=== PATIENT | female | born 1950 | race Caucasian/White ===

== ENCOUNTER 2018-04-13 16:02 | Emergency (ER) | payer MEDICARE ==
[~2018-04-13] VITALS: Ht 167.6 cm; Wt 115.9 kg
[~2018-04-13 16:02] MED LIST: ADVAIR 500/501 DISK INH; AUGMENTIN 875-11 TAB PO; BIOTIN5 MG PO; BUMEX2 MG PO; CATAPRES0.1 MG PO; CLARINEX5 MG PO; COMBIVENT RESPIM4 GM INH; DICLOFENAC SODI50 MG PO; DILANTIN100 MG PO; FLUTICASONE PRO16 GM NASAL; IPRAT-ALBUT 0.5-3 ML UPD; KLOR-CON M2020 MEQ PO; LASIX40 MG PO; MEDROL DOSE PACK4 MG PO; MIRAPEX0.25 MG PO; MOBIC7.5 MG PO; MUCINEX600 MG PO; NEURONTIN600 MG PO; NORCO 10/325 TA1 TA1 PO; NYSTATIN ORAL SU5 ML PO; OMNICEF300 MG PO; PHENERGAN25 M1 PO; PHENYTOIN100 MG/4 M PO; PREDNISONE20 MG PO; PROTONIX40 MG PO; RESTORIL15 MG PO; RESTORIL7.5 MG PO; SINGULAIR10 MG PO; TESSALON PERLE100 MG PO; TRILEPTAL300 MG PO; VITAMIN B-1000 MCG/M IM; ZANAFLEX4 MG PO; ZITHROMAX250 MG PO; ZITHROMAX500 MG PO; ZOFRAN4 MG PO
[2018-04-13 16:10] VITALS: Ht 167.6 cm; Wt 115.9 kg
[2018-04-13] MEDS ORDERED: ZANAFLEX4 MG PO (16:17)
[2018-04-13] MEDS ORDERED: TRAZODONE HCL100 MG PO (16:17)
[2018-04-13] MEDS ORDERED: CARTIA XT120 MG (16:18)
[2018-04-13] MEDS ORDERED: AVAPRO300 MG PO (16:18)
[2018-04-13 16:55] LABS: BASOPHILS 0.4 % (0-2); EOSINOPHILS 2.9 % (0-7); HEMATOCRIT 35.1 % (36.0-48.0); HEMOGLOBIN 11.5 g/dL (12-16); IMMATURE GRANULOCYTES 0.1 % (0-5); LYMPHOCYTES 18.6 % (15-50); MCH 29.8 pg (26.0-34.0); MCHC 32.8 g/dL (31.0-37.0); MCV 90.9 fL (80.0-100.0); MEAN PLATELET VOLUME 9.6 fL (7.4-10.4); MONOCYTES 7.5 % (2-11); NEUTROPHILS 70.5 % (40-80); PLATELET COUNT 158 10x3/uL (130-400); RBC 3.86 10x6/uL (4.00-5.40); RDW 13.1 % (11.5-14.5); WBC 6.9 10x3/uL (4.8-10.8)
[2018-04-13 18:12] LABS: ALBUMIN 3.2 g/dL (3.4-5.0); ANION GAP 13.8 mmol/L (8-16); BILIRUBIN - TOTAL 0.19 mg/dL (0.2-1.3); CALCIUM 8.5 mg/dL (8.5-10.1); CARBON DIOXIDE 26.8 mmol/L (21.0-32.0); CREATININE - SERUM 1.3 mg/dL (0.6-1.3); POTASSIUM - SERUM 4.6 mmol/L (3.5-5.1); PROTEIN - SERUM 6.1 g/dL (6.4-8.2)
[2018-04-13 19:23] VITALS: BP 163/84
== END 2018-04-13 19:19 | disposition home or self-care (01) ==
LOC: D.ER 16:02
PROVIDERS: Emergency Medicine
DX: R25.2 Cramp and spasm (principal); J44.9 Chronic obstructive pulmonary disease, unspecified; Z86.79 Personal history of other diseases of the circulatory system; I10 Essential (primary) hypertension; N28.9 Disorder of kidney and ureter, unspecified; G40.909 Epilepsy, unspecified, not intractable, without status epilepticus

== ENCOUNTER 2018-08-05 11:46 | Inpatient (IN) | payer MEDICARE, OTHER ==
[~2018-08-05] VITALS: Ht 167.6 cm; Wt 110.7 kg
[~2018-08-05 11:46] MED LIST changes: +AVAPRO300 MG PO; +CARTIA XT120 MG; +TRAZODONE HCL100 MG PO
--- NOTE | 2018-08-05 12:59 | NUR ---
PT ARRIVED A DIRECT ADMIT FROM OFFICE. PT IS A&O SITTING UP IN BED WITH DAUGHTER AT BEDSIDE. RR NONLABORED WITH NC @2L IN PLACE. 22 GUAGE PIV INSERTED TO L.FA X2 STICKS. WILL REVIEW NEW ORDERS AND BEGIN PLAN OF CARE.
[2018-08-05 13:11] LABS: BASOPHILS 0.3 % (0-2); EOSINOPHILS 1.2 % (0-7); HEMATOCRIT 34.4 % (36.0-48.0); HEMOGLOBIN 11.1 g/dL (12-16); IMMATURE GRANULOCYTES 0.8 % (0-5); LYMPHOCYTES 23.4 % (15-50); MCH 29.9 pg (26.0-34.0); MCHC 32.3 g/dL (31.0-37.0); MCV 92.7 fL (80.0-100.0); MEAN PLATELET VOLUME 9.3 fL (7.4-10.4); MONOCYTES 8.2 % (2-11); NEUTROPHILS 66.1 % (40-80); RBC 3.71 10x6/uL (4.00-5.40); RDW 12.4 % (11.5-14.5); WBC 7.7 10x3/uL (4.8-10.8)
[2018-08-05 13:17] LABS: PLATELET COUNT 205 10x3/uL (130-400)
[2018-08-05 13:24] LABS: ALBUMIN 3.2 g/dL (3.4-5.0); ANION GAP 13.5 mmol/L (8-16); BILIRUBIN - TOTAL 0.06 mg/dL (0.2-1.3); CALCIUM 8.5 mg/dL (8.5-10.1); CARBON DIOXIDE 27.3 mmol/L (21.0-32.0); CREATININE - SERUM 0.9 mg/dL (0.6-1.3); POTASSIUM - SERUM 3.8 mmol/L (3.5-5.1); PROTEIN - SERUM 6.7 g/dL (6.4-8.2)
[2018-08-05 14:01] VITALS: BP 187/65
[2018-08-05 15:53] VITALS: BP 187/65; BMI 41.3
[2018-08-05 16:32] LABS: APPEARANCE CLEAR (CLEAR); BILIRUBIN NEGATIVE (NEGATIVE); COLOR YELLOW (YELLOW); GLUCOSE NEGATIVE (NEGATIVE); KETONE NEGATIVE (NEGATIVE); NITRITE NEGATIVE (NEGATIVE); PROTEIN NEGATIVE (NEGATIVE); UROBILINOGEN NORMAL (NORMAL)
--- NOTE | 2018-08-05 17:12 | NUR ---
EMPTIED TOPHAT OF 800CC CLEAR YELLOW URINE. PT VOICED RELIEF FROM PRN PAIN PILL AND VOICED THANKS. PT SITTING UP IN BED RESTING QUIETLY. NO CURRENT NEEDS. WILL CTM.
[2018-08-05 20:00] VITALS: BP 154/66
--- NOTE | 2018-08-05 21:46 | NUR ---
ADMINISTERED ORDERED ANALGESIC FOR PT COMPLAINTS OF BACK PAIN, PT STATES PAIN OF A 7 ON A SCALE OF 0-10.
[2018-08-06] VITALS: BP 201/70
--- NOTE | 2018-08-06 00:19 | NUR ---
PT RESTING WITH EYES CLOSED. RESP EVEN AND REGULAR. SR UP X2, CALL LIGHT WITHIN REACH.
--- NOTE | 2018-08-06 02:51 | NUR ---
PT SITTING UP IN BED WITH EYES OPEN, RR EVEN AND UNLABORED. BED IN LOW POSITION. OXYGEN AT 2.5 LITERS BY NASAL CANNULA. NO S/S OF DISTRESS. CALL LIGHT IN REACH. WILL CTM.
[2018-08-06 04:00] VITALS: BP 187/77
--- NOTE | 2018-08-06 05:58 | NUR ---
PT SITTING UP IN BED WITH EYES OPEN, NO S/S OF DISTRESS. BED IN LOW POSITION. CALL LIGHT IN REACH. DENIES NEEDS. WILL CTM.
--- NOTE | 2018-08-06 07:30 | NUR ---
PATIENT IS ALERT AND ORIENTED. SITTING UP IN BED AT THIS TIME WATCHING TV. SHE DENIES ANY NEEDS AND REPORTS THAT SHE DID NOT SLEEP VERY WELL.
[2018-08-06 08:16] VITALS: Ht 167.6 cm; Wt 110.7 kg
[2018-08-06 08:33] VITALS: BP 146/76
--- NOTE | 2018-08-06 08:59 | NUR ---
IV IN LEFT FOREARM IS INFILTRATED. REMOVED WITH CATHETER INTACT. ATTEMPTED 2 STICKS WAS UNSUCCESSFUL. CALLING ER TO SEE IF THEY HAVE A VASCULAR ACCESS NURSE TODAY. PATIENT IS A RIGHT ARM RESERVE.
[2018-08-06 10:08] LABS: BASOPHILS 0.2 % (0-2); EOSINOPHILS 0.1 % (0-7); HEMATOCRIT 36.8 % (36.0-48.0); HEMOGLOBIN 11.9 g/dL (12-16); IMMATURE GRANULOCYTES 0.7 % (0-5); LYMPHOCYTES 13.7 % (15-50); MCH 29.8 pg (26.0-34.0); MCHC 32.3 g/dL (31.0-37.0); MEAN PLATELET VOLUME 9.5 fL (7.4-10.4); MONOCYTES 3.6 % (2-11); NEUTROPHILS 81.7 % (40-80); PLATELET COUNT 227 10x3/uL (130-400); RDW 12.4 % (11.5-14.5); WBC 9.5 10x3/uL (4.8-10.8)
[2018-08-06 10:13] LABS: ANION GAP 11.8 mmol/L (8-16); CALCIUM 8.8 mg/dL (8.5-10.1); CARBON DIOXIDE 27.4 mmol/L (21.0-32.0); CREATININE - SERUM 0.9 mg/dL (0.6-1.3); POTASSIUM - SERUM 4.2 mmol/L (3.5-5.1)
--- NOTE | 2018-08-06 10:24 | NUR ---
CALLED PHARMACY. MEDICATION IS NOT AVAILABLE AT THIS TIME.
--- NOTE | 2018-08-06 11:27 | NUR ---
NEW IV STARTED BY PORTIA MONDRAGON. LEFT HAND 22 GAUGE. BEING VERY TENDER WITH IT. ADMINISTERING ANTIBIOTICS SLOWER THEN ORDERED TO BE MORE GENTAL ON THE VEIN.
[2018-08-06 11:57] VITALS: BP 201/78
--- NOTE | 2018-08-06 13:18 | NUR ---
RN ROUNDING DONE WITH PATIENT RESTING WITH EYES CLOSED. RESP ARE EVEN AND NON LABORED. ON 3L PER NC. PATIENT IS OBESE, WAS SLEEPING WITH HOB AT 90 DEGREES. USING BED CONTROLS I PLACED HER IN A 30 DEGREE SETTING. AROUSES EASILY, STATES "MUCH BETTER". ON HEART MONITOR SHOWING SR, HR 72.
[2018-08-06 16:23] VITALS: BP 149/67
--- NOTE | 2018-08-06 20:03 | NUR ---
INITIAL REPORT AND ROUNDS COMPLETED. SEE ASSESSMENT.
[2018-08-06 21:28] VITALS: BP 207/89
--- NOTE | 2018-08-07 01:01 | NUR ---
PT ACCIDENTALLY PULLED ON IV UNTIL IT IS NO LONGER PATENT. NO FURTHER IV MEDS DUE THIS SHIFT. WILL ATTEMPT RESITE IN AM. PT NOW READYING SELF FOR BED.
[2018-08-07 01:19] VITALS: BP 213/62
[2018-08-07 04:57] VITALS: BP 197/95
--- NOTE | 2018-08-07 04:59 | NUR ---
PT RESTING WITH NO DISTRESS. MONITOR AND CPOC.
[2018-08-07 05:58] LABS: BASOPHILS 0 % (0-2); EOSINOPHILS 0 % (0-7); HEMATOCRIT 40.4 % (36.0-48.0); IMMATURE GRANULOCYTES 0.7 % (0-5); LYMPHOCYTES 9.6 % (15-50); MCHC 32.2 g/dL (31.0-37.0); MCV 93.3 fL (80.0-100.0); MEAN PLATELET VOLUME 9.8 fL (7.4-10.4); MONOCYTES 2.1 % (2-11); NEUTROPHILS 87.6 % (40-80); PLATELET COUNT 243 10x3/uL (130-400); RBC 4.33 10x6/uL (4.00-5.40); RDW 12.4 % (11.5-14.5); WBC 10.2 10x3/uL (4.8-10.8)
[2018-08-07 06:43] LABS: ANION GAP 16.5 mmol/L (8-16); CALCIUM 9.6 mg/dL (8.5-10.1); CARBON DIOXIDE 28.7 mmol/L (21.0-32.0); CREATININE - SERUM 0.9 mg/dL (0.6-1.3)
[2018-08-07 06:52] LABS: POTASSIUM - SERUM 5.2 mmol/L (3.5-5.1)
--- NOTE | 2018-08-07 07:20 | NUR ---
RECEIVED REPORT. LYING IN BED HOB ELEVATED EYES CLOSED RESTING. RR EVEN AND UNLABORED. CALL LIGHT WITHIN REACH, FALL PRECAUTIONS IN PLACE
[2018-08-07 08:32] VITALS: BP 198/80
[2018-08-07 12:21] VITALS: BP 192/77
--- NOTE | 2018-08-07 15:28 | NUR ---
ALERT AND ORIENTED. SITTING UP BED PUTTING MAKEUP ON. WAITING FOR DISCHARGE PAPERWORK. NO SIGNS OF DISTRESS. BLANCO BROOKS RESUMES PLAN OF CARE AND SAFETY PRECAUTIONS.
[2018-08-07] MEDS ORDERED: VIBRAMYCIN 100100 MG PO (15:39)
[2018-08-07] MEDS ORDERED: COREG6.25 MG PO (15:58)
[2018-08-07] MEDS ORDERED: CARDURA1 MG PO (16:12)
[2018-08-07] MEDS ORDERED: PREDNISONE10 MG PO (16:14)
[2018-08-07 16:31] VITALS: BP 159/63
--- NOTE | 2018-08-07 16:40 | NUR ---
SITTING UP IN BED EYES OPEN ALERT. DENIES ANY NEEDS OR PAIN. AWAITING D/C PAPERWORK.
--- NOTE | 2018-08-07 18:31 | NUR ---
REVIEWED D/C INSTRUCTIONS AND MEDICATIONS WITH PATIENT. NO CONCERNS VOICED. PATIENT COPY WAS GIVEN AND CHART COPY SIGNED BY PATIENT. NO IV ACCESS NOTED. PATIENT IS AWAITING HER RIDE FOR TO GO HOME.
--- NOTE | 2018-08-07 19:03 | NUR ---
PT DISCHARGED TO HOME VIA PRIVATE CAR AT THIS TIME. ALL BELONGINGS WITH PATIENT.
--- NOTE | 2018-08-08 11:31 | MORECARE ---
CASE MANAGEMENT DISCHARGE SUMMARY PATIENT: JULISSA GALVEZ UNIT: [id number] ADM DATE: 08/05/18 AGE: 67 : 48 SEX: F ROOM/BED: D.2126 AUTHOR: DESTINEE SMITH PHYSICIAN: REFERRING PHYSICIAN: CARMEN MARSHALL MD DATE OF SERVICE: 08/08/18 Discharge Plan Patient Name: JULISSA GALVEZ [facility] [facility] 1950 Planned Disposition: Home Anticipated Discharge Date: 08/07/18 Discharge Date: 08/07/2018 Expected LOS: 2 Initial Reviewer: [email or web address] Initial Review Date: 08/08/2018 Generated: 08/08/18 12:31 pm Patient Name: JULISSA GALVEZ Page 55108 at 1131 All edits/amendments must be made on the electronic document DICTATION DATE: 08/08/18 113 CARAMEL CUTTER HELPER: EMERSON 08/08/18 1130 RPT#: [id number] DC DATE:08/07/18 STATUS: DIS IN [facility] [address] [place] [address] END OF REPORT
--- NOTE | 2018-08-10 16:42 | CN ---
PATIENT NAME:JULISSA GALVEZ MEDICAL RECORD: [id number] : 46 LOCATION:D. D.2126 ADMIT DATE: 08/05/18 ACCOUNT: [id number] CONSULTING PHYSICIAN: INDY VIVAR MD REFERRING PHYSICIAN: CARMEN MARSHALL MD DATE OF CONSULTATION: 08/05/2018 CONSULT REQUESTING PHYSICIAN: Radha Dubois MD REASON FOR CONSULTATION: COPD exacerbation. HISTORY OF PRESENT ILLNESS: Ms. Galvez is a 67-year-old female who is sick for the last few days. She was seen in the PCP office yesterday, given some antibiotic, but the patient was not getting any better. She came into the ER for worsening shortness of breath. She has generalized body aches and pain. She also have intermittent fever. There is no yellow-green color sputum production. The patient does have sleep apnea, but she is not using a CPAP machine, which give her migraine headache. REVIEW OF SYSTEMS: As in history of present illness. PAST MEDICAL HISTORY: 1. COPD. 2. Seizure disorder. 3. Nocturnal hypoxia. 4. Peptic ulcer disease. 5. Arthritis. PAST SURGICAL HISTORY: 1. Hysterectomy. 2. Right mastectomy. ALLERGIES: SHE IS ALLERGIC TO PROCHLORPERAZINE, LEVOFLOXACIN, MEPERIDINE, SULFA, AND BACTRIM. MEDICATIONS: On Clerts! is reviewed. PERSONAL AND SOCIAL HISTORY: The patient is an ex-smoker. She is a nondrinker. FAMILY HISTORY: Noncontributory. PHYSICAL EXAMINATION: GENERAL: The patient is lying comfortably, but she is not in acute distress. VITAL SIGNS: The blood pressure is 87/65, pulse is 80, respiration 20, temperature 98.1, and SPO2 95% on 2 liters nasal cannula. HEENT: Conjunctivae are pink. Sclerae are not icteric. NECK: Supple, no JVD. CHEST: There are wheezing on forceful expiration. HEART: Rhythm regular, normal sound, no murmur. ABDOMEN: Soft, bowel sounds present. No hepatosplenomegaly. RECTAL: Deferred. EXTREMITIES: No cyanosis, no clubbing, no pedal edema. CENTRAL NERVOUS SYSTEM: The patient is awake and alert. There are no obvious cranial nerve abnormality. The gait was not tested. CONSULT REPORT [id number] JULISSA GALVEZ CHEST RADIOGRAPH: There are old calcified granuloma in the subcarinal region. There is also pulmonary nodule in the right lower lobe. There is no acute infiltrate. OTHER LABORATORY DATA: CBC: WBC 7.7, hemoglobin 11.1, hematocrit 34.4. ABG: The pH is 7.35, pCO2 is 45.8, the pO2 is 74, bicarbonate is 25.8. IMPRESSION: 1. Acute exacerbation of chronic obstructive pulmonary disease. 2. Pqgda-mp-yasbpyj hypoxic respiratory failure. 3. Tracheobronchitis. 4. Old granulomatous disease with calcified lymph node in the subcarinal region. 5. Dyspnea. 6. Obstructive sleep apnea, but the patient is not tolerating the CPAP machine. 7. Seizure disorder. RECOMMENDATION: 1. Start on doxycycline to cover for the tracheobronchitis. 2. Methylprednisolone IV. 3. Albuterol-ipratropium nebulizer. 4. Discontinue Advair. 5. Start on Brovana and budesonide nebulizer. 6. Mucinex DM. 7. Supplemental oxygen is required. 8. We will check the CT scan of the chest. 9. DVT prophylaxis. Follow up labs and chest radiograph. Dr. Dubois, thank you for involving me in the care of Ms. Galvez. TRANSINT:[id number] Voice Confirmation ID: [id number] DOCUMENT ID: [id number] INDY VIVAR MD at 1642 CC: [id number] DICTATION DATE: 08/05/18 1630 [place]: 08/05/18 2311 DIS IN 08/07/18 [address] [id number] [place] [address]
== END 2018-08-07 19:02 | disposition home or self-care (01) | DRG 291 ==
LOC: D.M2 11:46
PROVIDERS: Internal Medicine Pulmonary Disease; ADMIT Family Medicine
DX: I11.0 Hypertensive heart disease with heart failure (principal); J96.01 Acute respiratory failure with hypoxia; J44.1 Chronic obstructive pulmonary disease with (acute) exacerbation; G40.909 Epilepsy, unspecified, not intractable, without status epilepticus; K27.9 Peptic ulcer, site unspecified, unspecified as acute or chronic, without hemorrhage or perforation; J40 Bronchitis, not specified as acute or chronic; G47.33 Obstructive sleep apnea (adult) (pediatric); I50.9 Heart failure, unspecified; Z87.891 Personal history of nicotine dependence

== ENCOUNTER → 2018-11-07 09:57 | Outpatient (CLI) | payer MEDICARE, OTHER ==
[2018-08-06 08:16] VITALS: BMI 41.1
[~2018-11-07 09:57] MED LIST changes: +CARDURA1 MG PO; +COREG6.25 MG PO; +PREDNISONE10 MG PO; +VIBRAMYCIN 100100 MG PO
== END | disposition home or self-care (01) ==
LOC: D.RAD 09:57
PROVIDERS: ATTEND Internal Medicine Pulmonary Disease
DX: R07.89 Other chest pain (principal)

== ENCOUNTER → 2018-11-09 13:04 | Outpatient (CLI) | payer MEDICARE, OTHER ==
[2018-08-06 08:16] VITALS: BMI 41.1
== END | disposition home or self-care (01) ==
LOC: D.RAD 13:04
PROVIDERS: ATTEND Internal Medicine Pulmonary Disease
DX: S22.41XA Multiple fractures of ribs, right side, initial encounter for closed fracture (principal)

== ENCOUNTER → 2018-12-20 10:31 | Outpatient (CLI) | payer MEDICARE, OTHER ==
[2018-08-06 08:16] VITALS: BMI 41.1
== END | disposition home or self-care (01) ==
LOC: D.MRI 10:31
PROVIDERS: ATTEND Orthopaedic Surgery
DX: S83.411A Sprain of medial collateral ligament of right knee, initial encounter (principal); X58.XXXA Exposure to other specified factors, initial encounter

== ENCOUNTER → 2019-01-27 11:27 | Outpatient (CLI) | payer MEDICARE, OTHER ==
[2018-08-06 08:16] VITALS: BMI 41.1
== END | disposition home or self-care (01) ==
LOC: D.LABREF 11:27
PROVIDERS: ATTEND Orthopaedic Surgery
DX: M16.11 Unilateral primary osteoarthritis, right hip (principal)

== ENCOUNTER → 2019-01-30 10:26 | Outpatient (CLI) | payer MEDICARE ==
[2018-08-06 08:16] VITALS: BMI 41.1
== END | disposition home or self-care (01) ==
LOC: D.LABREF 10:26
PROVIDERS: ATTEND Orthopaedic Surgery
DX: M16.11 Unilateral primary osteoarthritis, right hip (principal)

== ENCOUNTER → 2019-01-30 14:50 | Outpatient (CLI) | payer MEDICARE, OTHER ==
[2018-08-06 08:16] VITALS: BMI 41.1
== END | disposition home or self-care (01) ==
LOC: D.LABREF 14:50
PROVIDERS: ATTEND Orthopaedic Surgery
DX: M16.11 Unilateral primary osteoarthritis, right hip (principal)

== ENCOUNTER → 2019-04-05 09:37 | Outpatient (CLI) | payer MEDICARE, OTHER ==
[2018-08-06 08:16] VITALS: BMI 41.1
== END | disposition home or self-care (01) ==
LOC: D.MRI 09:37
PROVIDERS: ATTEND Nurse Practitioner Family
DX: M25.812 Other specified joint disorders, left shoulder (principal)

== ENCOUNTER 2019-05-17 04:28 | Inpatient (IN) | payer MEDICARE, OTHER ==
[2019-05-17] VITALS (8 sets, daily range): BP systolic 104–184; BP diastolic 32–72; Ht 167.6 cm; Wt 112.7 kg
[~2019-05-17] VITALS: Ht 167.6 cm; Wt 112.7 kg
[~2019-05-17 04:28] MED LIST changes: -CARTIA XT120 MG; +CARTIA XT120 MG PO
[2019-05-17 05:27] LABS: BASOPHILS 0.5 % (0-2); EOSINOPHILS 5.1 % (0-7); HEMATOCRIT 35.7 % (36.0-48.0); HEMOGLOBIN 10.9 g/dL (12-16); IMMATURE GRANULOCYTES 0.3 % (0-5); LYMPHOCYTES 12.8 % (15-50); MCH 29.1 pg (26.0-34.0); MCHC 30.5 g/dL (31.0-37.0); MCV 95.2 fL (80.0-100.0); MEAN PLATELET VOLUME 10.2 fL (7.4-10.4); MONOCYTES 10.3 % (2-11); RBC 3.75 10x6/uL (4.00-5.40); RDW 13.1 % (11.5-14.5); WBC 5.9 10x3/uL (4.8-10.8)
--- NOTE | 2019-05-17 05:30 | NUR ---
RESTING IN ROOM QUIETLY. REPORTS PAIN. NOTIFIED MD. RESP EVEN AND UNLABORED, URINE SENT TO LAB
[2019-05-17 05:32] LABS: PLATELET COUNT 157 10x3/uL (130-400)
[2019-05-17 05:42] LABS: ALBUMIN 3.3 g/dL (3.4-5.0); ALKALINE PHOSPHATASE 143 U/L (46-116); ALT (SGPT) 17 U/L (10-68); BILIRUBIN - TOTAL 0.23 mg/dL (0.2-1.3); CALC OSMOLALITY 278 mosm/kg (275-300); CALCIUM 8.7 mg/dL (8.5-10.1); CARBON DIOXIDE 26.2 mmol/L (21.0-32.0); CHLORIDE - SERUM 105 mmol/L (98-107); CREATININE - SERUM 0.8 mg/dL (0.6-1.3); GLUCOSE 93 mg/dL (74-106); POTASSIUM - SERUM 4.7 mmol/L (3.5-5.1); PROTEIN - SERUM 6.4 g/dL (6.4-8.2); SODIUM 139 mmol/L (136-145); UREA NITROGEN 15 mg/dL (7-18); eGFR NON AFRICAN AMERICAN 75 mL/min (90-120)
--- NOTE | 2019-05-17 06:23 | NUR ---
BACK FROM CT. RADIOLOGY REPORTS IV INFILTRATED AFTER FLUSHING.
[2019-05-17 06:30] LABS: INR 0.9 (0.85-1.17); PROTIME 11.7 SECONDS (11.6-15.0)
[2019-05-17 06:48] LABS: CKMB 0.6 U/L (0.0-3.6); CREATINE KINASE 61 UL (21-215)
--- NOTE | 2019-05-17 06:48 | NUR ---
NEW IV STARTED BY CHARGE NURSE PT TRANSFERRED TO CT
[2019-05-17 06:49] LABS: TROPONIN-I < 0.017 ng/mL (0.000-0.060)
[2019-05-17 07:12] LABS: APPEARANCE CLEAR (CLEAR); BILIRUBIN NEGATIVE (NEGATIVE); COLOR YELLOW (YELLOW); GLUCOSE NEGATIVE (NEGATIVE); KETONE NEGATIVE (NEGATIVE); NITRITE NEGATIVE (NEGATIVE); PROTEIN NEGATIVE (NEGATIVE); UROBILINOGEN NORMAL (NORMAL)
[2019-05-17 07:13] LABS: BACTERIA MODERATE /hpf (NEGATIVE); EPITHELIAL CELLS 0-5 /hpf (0-5); MUCUS <1+ /lpf (NONE SEEN); WHITE CELLS - URINE 0-5 /hpf (NEGATIVE)
--- NOTE | 2019-05-17 07:15 | NUR ---
PT RTND FROM CT. ASSUMED CARE OF PT. A/OX3. CONT TO C/O 03/04 NECK/SHLDR PAIN RESP EVEN/UNLABORED. VSS.
--- NOTE | 2019-05-17 08:00 | NUR ---
PT REQUESTING MEDS FOR NECK PAIN DR MABRY PAGED
[2019-05-17 08:06] LABS: APTT 23.3 SECONDS (22.8-39.4)
--- NOTE | 2019-05-17 08:09 | NUR ---
REPORT CALLED TO BLANCO YATES
--- NOTE | 2019-05-17 08:15 | NUR ---
DR MABRY CALLED BACK. INFORMED OF PTS CONT NECK PAIN AND "MORPHINE DIDN'T HELP AT ALL". INSTR TO HAVE FLOOR NURSE CALL JANA SCHUSTER WHEN PT ARRIVES ON FLOOR FOR FURTHER ORDERS/EVAL
--- NOTE | 2019-05-17 08:20 | NUR ---
TRANSPORTED TO ROOM #2126, CONDITION STABLE. LR INFUSING W/O PER BOLUS ORDER. INFORMED BLANCO YATES THAT PT WAS A DIFFICULT IV STICK AND LR WAS STARTED SOON IV OBTAINED,
--- NOTE | 2019-05-17 08:35 | NUR ---
RECIVED FROM ER TO ROOM 2126. ADMIT ASSESSMENT PER RN.
[2019-05-17 14:20] LABS: % SATURATION 6 % (15-55); IRON 20 ug/dl (35-150); TOTAL IRON BIND CAPACITY 309 ug/dl (260-445); UNSAT IRON BIND CAPACITY 289 ug/dl (150-375)
--- NOTE | 2019-05-17 17:51 | NUR ---
WITHOUT CHANGES OR DISTRESS NOTED AT THIS TIME.
--- NOTE | 2019-05-17 19:15 | NUR ---
PT RESTING WITH EYES CLOSED. SHE IS LETHARGIC BUT AROUSES TO VERBAL STIMULI. RESPIRATIONS ARE SHALLOW BUT REGULAR AT A RATE OF 16 BREATHS PER MINUTE. PER TELEMETRY SHE IS SINUS RHYTHM WITH A HEART RATE OF 73. BED IS LOW AND CALL LIGHT WITHIN REACH.
--- NOTE | 2019-05-17 21:55 | NUR ---
SPOKE TO OZ IN THE PHARMACY REGARDING RESTOCKING AMOXICILLIN IN THE PYXIS. HE IS GOING TO COME UP TO RESTOCK.
--- NOTE | 2019-05-17 23:00 | NUR ---
AMOXICILLIN NOT LOADED IN PYXIS UNDER PTS PROFILE. PHARMACY STAFF HAS LEFT. ALKA DEL TORO ENVIRONMENTAL EDUCATOR NOTIFIED AND WILL OVERRIDE. WILL ADMINISTER SOON THE MED IS PULLED FROM PYXIS.
--- NOTE | 2019-05-18 04:13 | NUR ---
PT C/O NEEDING TO USE THE RESTROOM.ROSALIO VICENTE AND I TRIED TO GET HER OUT OF BED TO GO TO THE BATHROOM BUT SHE CRIED OUT IN PAIN SAYING HER BACK WAS HURTING. A 03/04. SHE STATES SHE HAS HAD CHRONIC BACK PAIN FOR YEARS FROM SURGERY. THE DRAW SHEET UNDER HER WAS SATURATED WITH URINE. ASSISTED ONTO BED [place].WILL ADMINISTER HYDROCODONE ORDERED FOR PAIN. SHE IS MORE ALERT NOW. SHE IS ORIENTED X 4.
[2019-05-18 04:30] VITALS: BP 149/68
[2019-05-18 05:35] LABS: BASOPHILS 0.2 % (0-2); EOSINOPHILS 0.4 % (0-7); HEMATOCRIT 35.5 % (36.0-48.0); HEMOGLOBIN 10.7 g/dL (12-16); IMMATURE GRANULOCYTES 0.4 % (0-5); LYMPHOCYTES 7.2 % (15-50); MCH 28.8 pg (26.0-34.0); MCHC 30.1 g/dL (31.0-37.0); MCV 95.7 fL (80.0-100.0); MEAN PLATELET VOLUME 9.9 fL (7.4-10.4); MONOCYTES 6.9 % (2-11); NEUTROPHILS 84.9 % (40-80); PLATELET COUNT 158 10x3/uL (130-400); RBC 3.71 10x6/uL (4.00-5.40); RDW 13.2 % (11.5-14.5)
[2019-05-18 05:36] LABS: WBC 10.7 10x3/uL (4.8-10.8)
[2019-05-18 06:02] LABS: ALBUMIN 2.9 g/dL (3.4-5.0); ANION GAP 9.4 mmol/L (8-16); BILIRUBIN - TOTAL 0.24 mg/dL (0.2-1.3); CALCIUM 8.1 mg/dL (8.5-10.1); POTASSIUM - SERUM 5.4 mmol/L (3.5-5.1); PROTEIN - SERUM 6.4 g/dL (6.4-8.2)
[2019-05-18 06:13] LABS: CREATININE - SERUM 1.4 mg/dL (0.6-1.3)
[2019-05-18 08:10] VITALS: BP 122/49; BP 150/77
--- NOTE | 2019-05-18 08:22 | NUR ---
AWAKE AND ALERT TELEMERTY SHOWS SR 76. O2 AT 3 LM PER NC. SL TO LEFT FA. UP WITH HELP. SR UP WITH CALL LIGHT IN REACH
[2019-05-18 11:02] VITALS: BP 109/47
--- NOTE | 2019-05-18 14:33 | NUR ---
LYING QUIETLY. NO DISTRESS NOTED. TELEMERTY SHOWS SR. WILL MONITOR
--- NOTE | 2019-05-18 14:40 | NUR ---
I have reviewed this patient and I concur with the Shift Assessment completed by the Licensed Practical Nurse today this shift.
[2019-05-18 15:51] VITALS: BP 129/57
--- NOTE | 2019-05-18 16:42 | NUR ---
Rehab Note- Acute Inpatient Rehab prescreen order received. The patient has had her PT Eval and at this time are recomending to dc home with HH, will follow at this time to see if there is a change in functional mobility. Thank you for this referral! Sheryl Gomez RN Clinical Liaison, [facility] Rehab
--- NOTE | 2019-05-18 18:55 | NUR ---
PT RESTING WITH EYES CLOSED. ALERT WITH VERBAL STIMULI. RESPIRATIONS SHALLOW BUT UNLABORED. SHE IS ON 3L NC. SHE DENIES PAIN OR NEEDS. BED IS LOW AND CALL LIGHT WITHIN REACH.
[2019-05-18 20:19] VITALS: BP 157/63
[2019-05-18 23:19] VITALS: BP 106/64
[2019-05-19 04:38] VITALS: BP 159/52
--- NOTE | 2019-05-19 07:51 | NUR ---
AWAKE AND ALERT. TELEMERTY SHOWS SR. O2 AT 3 L/M PER NC. RESERVE RIGHT ARM. SR UP WITH CALL LIGHT IN REACH
[2019-05-19 09:05] VITALS: BP 155/53
[2019-05-19 10:29] LABS: BASOPHILS 0.1 % (0-2); EOSINOPHILS 0.8 % (0-7); HEMATOCRIT 34.5 % (36.0-48.0); IMMATURE GRANULOCYTES 0.2 % (0-5); MCH 29.5 pg (26.0-34.0); MCHC 31.9 g/dL (31.0-37.0); MEAN PLATELET VOLUME 9.8 fL (7.4-10.4); MONOCYTES 10.6 % (2-11); NEUTROPHILS 78.3 % (40-80); PLATELET COUNT 171 10x3/uL (130-400); RBC 3.73 10x6/uL (4.00-5.40); RDW 12.7 % (11.5-14.5); WBC 8.6 10x3/uL (4.8-10.8)
[2019-05-19 10:35] LABS: MCV 92.5 fL (80.0-100.0)
[2019-05-19 10:44] LABS: ANION GAP 8.4 mmol/L (8-16); CALCIUM 8.3 mg/dL (8.5-10.1); CARBON DIOXIDE 35.8 mmol/L (21.0-32.0); CREATININE - SERUM 1.2 mg/dL (0.6-1.3)
[2019-05-19 10:45] LABS: POTASSIUM - SERUM 4.2 mmol/L (3.5-5.1)
[2019-05-19 12:59] VITALS: BP 153/71
[2019-05-19 13:45] LABS: MONO NEGATIVE (NEGATIVE)
--- NOTE | 2019-05-19 14:34 | MORECARE ---
CASE MANAGEMENT DISCHARGE SUMMARY PATIENT: JULISSA GALVEZ UNIT: [id number] ADM DATE: 05/17/19 AGE: 68 : 48 SEX: F ROOM/BED: D.2126 AUTHOR: DESTINEE SMITH PHYSICIAN: REFERRING PHYSICIAN: MAKENNA MABRY MD DATE OF SERVICE: 05/19/19 Discharge Plan Patient Name: JULISSA GALVEZ [facility] [facility] 1950 Planned Disposition: Home or Self Care Anticipated Discharge Date: Discharge Date: Expected LOS: Initial Reviewer: [email or web address] Initial Review Date: 05/19/2019 Generated: 05/19/19 3:34 pm Patient Name: JULISSA GALVEZ Page 80926 at 1434 All edits/amendments must be made on the electronic document DICTATION DATE: 05/19/191433 CONTRACT LOADER: EMERSON 05/19/19 143 RPT#: [id number] DC DATE: STATUS: ADM IN [facility] [address] [place] [address] END OF REPORT
--- NOTE | 2019-05-19 14:42 | MORECARE ---
CASE MANAGEMENT DISCHARGE SUMMARY PATIENT: JULISSA GALVEZ UNIT: [id number] ADM DATE: 05/17/19 AGE: 68 : 48 SEX: F ROOM/BED: D.2276 AUTHOR: DESTINEE SMITH PHYSICIAN: REFERRING PHYSICIAN: MAKENNA MABRY MD DATE OF SERVICE: 05/19/19 Discharge Plan Patient Name: JULISSA GALVEZ Facility: [facility]:[place] : 1950 Planned Disposition: Home or Self Care Anticipated Discharge Date: Discharge Date: Expected LOS: Initial Reviewer: [email or web address] Initial Review Date: 05/19/2019 Generated: 05/19/19 3:42 pm Comments DCP- Discharge Planning Updated by [email or web address]: Echo Aguilera on 05/19/19 1:[address] Patient Name: JULISSA GALVEZ Admission Status: ER Accout number: [id number] Admission Date: 05-17-2019 : 1950 Admission Diagnosis: Attending: MAKENNA MABRY Current LOS: 2 Anticipated DC Date: Planned Disposition: Home or Self Care Primary Insurance: MEDICARE A & B Discharge Planning Comments: CM MET WITH PATIENT ABOUT DC PLANNING. STATES PLANS TO DC TO HOME. SPOKE TO HER ABOUT REHAB, HH AND EQUIPMENT. STATES NO NEEDS AND DOES NOT WANT HH AT THIS TIME. Sheriff Sergeant: Echo Aguilera DCPIA - Discharge Planning Initial Assessment Updated by [email or web address]: Echo Aguilera on 05/19/19 2:35 pm * Is the patient Alert and Oriented? Yes * PCP JOANNA * Pharmacy [facility] * Preadmission Environment Home Alone * ADLs Independent * Other Equipment NEBS, 02, WALKER,CANE, WC * List name and contact numbers for known caregivers / representatives who currently or will assist patient after discharge: BUBAB, DAUGHTER, * Additional services required to return to the preadmission environment? No * Can the patient safely return to the preadmission environment? Yes * Has this patient been hospitalized within the prior 30 days at any hospital? No Last DP export: 05/19/19 1:34 Patient Name: JULISSA GALVEZ Page 47392 at 1442 All edits/amendments must be made on the electronic document DICTATION DATE: 05/19/191441 RAT FARMER: EMERSON 05/19/191441 RPT#: [id number] DC DATE: STATUS: ADM IN [facility] [address] [place] [address] END OF REPORT
[2019-05-19 18:01] VITALS: BP 169/63
--- NOTE | 2019-05-19 19:10 | NUR ---
PT CARE ASSUMED. PT RESING IN BED RR EVEN AND UNLABORED ON 3L NC. NO S/S OF DISTRESS NOTED AT THIS TIME. PT DENIES NEEDS. SR X2. CALL LIGHT IN REACH. WILL CTM.
[2019-05-19 20:00] VITALS: BP 166/62
[2019-05-20] VITALS: BP 163/62
[2019-05-20 04:00] VITALS: BP 185/65
[2019-05-20 05:02] LABS: BASOPHILS 0.3 % (0-2); EOSINOPHILS 2.5 % (0-7); HEMATOCRIT 35.7 % (36.0-48.0); HEMOGLOBIN 11.4 g/dL (12-16); LYMPHOCYTES 16.1 % (15-50); MCH 29.9 pg (26.0-34.0); MCHC 31.9 g/dL (31.0-37.0); MCV 93.7 fL (80.0-100.0); MEAN PLATELET VOLUME 10.3 fL (7.4-10.4); MONOCYTES 12.5 % (2-11); NEUTROPHILS 68.6 % (40-80); PLATELET COUNT 174 10x3/uL (130-400); RBC 3.81 10x6/uL (4.00-5.40); RDW 12.7 % (11.5-14.5); WBC 6.1 10x3/uL (4.8-10.8)
[2019-05-20 05:13] LABS: CALCIUM 8.6 mg/dL (8.5-10.1); CARBON DIOXIDE 36.1 mmol/L (21.0-32.0); CREATININE - SERUM 1.2 mg/dL (0.6-1.3); POTASSIUM - SERUM 4.1 mmol/L (3.5-5.1)
--- NOTE | 2019-05-20 08:15 | NUR ---
MEDICATED FOR PAIN AT THIS TIME. NO DISTRESS. PATIENT SITTING UP IN BED CONSUMING AM MEAL. PATIENT COMPLAINS THAT EVERYTHING TASTE LIKE COCONUT THIS AM, ALTERED TASTE BUDS DUE TO PHARNGITIS? CALL LIGHT WITHIN REACH. NO DISTRESS.
[2019-05-20 09:20] VITALS: BP 161/84
[2019-05-20] MEDS ORDERED: PROTONIX40 MG PO (10:54)
[2019-05-20] MEDS ORDERED: BUMEX2 MG PO (10:54)
[2019-05-20] MEDS ORDERED: AMOXICILLIN875 MG PO (10:57)
[2019-05-20 12:08] LABS: EBV - EARLY ANTIGEN AB IGG <9.0 U/mL (0.0-8.9); EBV VIRAL CAPSID AB IGG >600.0 U/mL (0.0-17.9); EBV VIRAL CAPSID AB IGM <36.0 U/mL (0.0-35.9)
[2019-05-20] MEDS ORDERED: AUGMENTIN 875-11 TAB PO (12:24)
--- NOTE | 2019-05-20 12:32 | NUR ---
DISCHARGE NOTE INDICATED PT TO BE D/C'D WITH AUGMENTIN, BUT D/C MEDS HAD AMOXICILLIN. CONFIRMED WITH LANDEN HONG APN, THAT RX SHOULD BE AUGMENTIN. CALLED [facility] NO AND SPOKE WITH ANDREA OLIVA, PHARMACIST, AND ADVISED SHOULD BE AUGMENTIN.
--- NOTE | 2019-05-20 13:01 | NUR ---
DISCHARGE INSTRUCTIONS PROVIDED TO PATIENT. VERBALIZED UNDERSTANDING OF ALL INSTRUCTIONS PROVIDED. 18 GAUGE IV REMOVED FROM LEFT FOREARM. NO BLEEDING FROM SITE. 2X2 GAUZE APPLIED AND SECURED WITH BANDAID. PATIENT WAITING FOR FAMILY TO COME PICK HER UP. TELEMETRY REMOVED AND RETURNED TO CAR RENTAL MANAGER. NO DISTRESS.
--- NOTE | 2019-05-20 13:16 | NUR ---
PATIENT LEFT UNIT BY WHEELCHAIR AT THIS TIME. PATIENT DISCHARGED TO HOME WITH ALL PERSONAL BELONGINGS. PATIENT DISCHARGED TO HOME WIHT HER DAUGHTER. NO DISTRESS UPON LEAVING THE UNIT.
--- NOTE | 2019-05-20 13:48 | MORECARE ---
CASE MANAGEMENT DISCHARGE SUMMARY PATIENT: JULISSA GALVEZ UNIT: [id number] ADM DATE: 05/17/19 AGE: 68 : 48 SEX: F ROOM/BED: D.8056 AUTHOR: SARAHDOC PHYSICIAN: REFERRING PHYSICIAN: MAKENNA MABRY MD DATE OF SERVICE: 05/20/19 Discharge Plan Patient Name: JULISSA GALVEZ [facility]:[place] : 1950 Planned Disposition: Home or Self Care Anticipated Discharge Date: Discharge Date: 05/20/2019 Expected LOS: Initial Reviewer: [email or web address] Initial Review Date: 05/19/2019 Generated: 05/20/19 2:48 pm Comments DCP- Discharge Planning Updated by [email or web address]: Ryanne Miranda on 05/20/19 12:[address] DC PLAN: Return home and a friend will be staying with her. DC IMM delivered, explained, signed by the patient, and placed in the chart. Signed form also left with patient. She denied need for home heatlh at this time or other community resources. Her friend will transport her home and will be bringing her portable o2 to hospital for dc. She feels her dc plan is safe. Ryanne Miranda RN, [facility] DCP- Discharge Planning Updated by [id number]: Echo Aguilera on 05/19/19 1:[address] Patient Name: JULISSA GALVEZ Admission Status: ER Accout number: [id number] Admission Date: 05-17-2019 : 1950 Admission Diagnosis: Attending: MAKENNA MABRY Current LOS: 2 Anticipated DC Date: Planned Disposition: Home or Self Care Primary Insurance: MEDICARE A & B Discharge Planning Comments: CM MET WITH PATIENT ABOUT DC PLANNING. STATES PLANS TO DC TO HOME. SPOKE TO HER ABOUT REHAB, HH AND EQUIPMENT. STATES NO NEEDS AND DOES NOT WANT HH AT THIS TIME. Client Integration Manager: Echo Aguilera DCPIA - Discharge Planning Initial Assessment Updated by [email or web address]: Echo Aguilera on 05/19/19 2:35 pm * Is the patient Alert and Oriented? Yes * PCP MARSHALL * Pharmacy [facility] * Preadmission Environment Home Alone * ADLs Independent * Other Equipment NEBS, 02, WALKER,CANE, WC * List name and contact numbers for known caregivers / representatives who currently or will assist patient after discharge: BUBBA, DAUGHTER, * Additional services required to return to the preadmission environment? No * Can the patient safely return to the preadmission environment? Yes * Has this patient been hospitalized within the prior 30 days at any hospital? No Coverage Notice Reviewer: [id number] Michelle Miranda Notice Issued Date-Time: 05/20/2019 11:20 Notice Type: IM Discharge Notice Notice Delivered To: Patient Relationship to Patient: Powersaw Supervisor Name: Delivery Method: HAND - Hand Delivered Elsy Days: Prior Verbal Notification: Recipient Understood Notice: Recipient Signature: Med Rec Note Co-signed by Attending: Coverage Notice Comment: Last DP export: 05/19/19 1:43 Patient Name: JULISSA GALVEZ Page 11652 at 1348 All edits/amendments must be made on the electronic document DICTATION DATE: 05/20/198 MACHINE BINDER STRIPPER: EMERSON 05/20/19 1348 RPT#: [id number] DC DATE:05/20/19 STATUS: DIS IN [facility] [address] [place] [address] END OF REPORT
== END 2019-05-20 13:18 | disposition home or self-care (01) | DRG 815 ==
LOC: D.ER 04:28 → D.M2 07:03
PROVIDERS: Family Medicine; ADMIT Internal Medicine Nephrology; ATTEND Internal Medicine Nephrology
DX: D72.820 Lymphocytosis (symptomatic) (principal); I50.22 Chronic systolic (congestive) heart failure; J96.11 Chronic respiratory failure with hypoxia; Z68.41 Body mass index [BMI] 40.0-44.9, adult; R59.1 Generalized enlarged lymph nodes; D64.9 Anemia, unspecified; I11.0 Hypertensive heart disease with heart failure; J44.9 Chronic obstructive pulmonary disease, unspecified; I34.0 Nonrheumatic mitral (valve) insufficiency; G40.909 Epilepsy, unspecified, not intractable, without status epilepticus; K27.9 Peptic ulcer, site unspecified, unspecified as acute or chronic, without hemorrhage or perforation; E66.01 Morbid (severe) obesity due to excess calories; Z85.3 Personal history of malignant neoplasm of breast

== ENCOUNTER 2019-05-23 11:57 | Inpatient (IN) | payer MEDICARE, OTHER ==
[~2019-05-23] VITALS: Ht 167.6 cm; Wt 106.6 kg
[~2019-05-23 11:57] MED LIST changes: +AMOXICILLIN875 MG PO
[2019-05-23 12:59] LABS: CALC OSMOLALITY 279 mosm/kg (275-300); CALCIUM 8.7 mg/dL (8.5-10.1); CARBON DIOXIDE 29.2 mmol/L (21.0-32.0); CHLORIDE - SERUM 100 mmol/L (98-107); CREATININE - SERUM 1.5 mg/dL (0.6-1.3); GLUCOSE 116 mg/dL (74-106); SODIUM 135 mmol/L (136-145); UREA NITROGEN 39 mg/dL (7-18); eGFR NON AFRICAN AMERICAN 36 mL/min (90-120)
[2019-05-23 13:00] VITALS: BP 133/49
[2019-05-23 13:06] LABS: BASOPHILS 0.2 % (0-2); EOSINOPHILS 5.9 % (0-7); HEMATOCRIT 38.4 % (36.0-48.0); IMMATURE GRANULOCYTES 0.3 % (0-5); LYMPHOCYTES 11.9 % (15-50); MCH 29.1 pg (26.0-34.0); MCHC 31.3 g/dL (31.0-37.0); MCV 93.2 fL (80.0-100.0); MEAN PLATELET VOLUME 10.2 fL (7.4-10.4); MONOCYTES 10.1 % (2-11); NEUTROPHILS 71.6 % (40-80); PLATELET COUNT 142 10x3/uL (130-400); RBC 4.12 10x6/uL (4.00-5.40); RDW 12.6 % (11.5-14.5); WBC 5.7 10x3/uL (4.8-10.8)
[2019-05-23 13:11] LABS: ALBUMIN 3.2 g/dL (3.4-5.0); ALKALINE PHOSPHATASE 109 U/L (46-116); ALT (SGPT) 20 U/L (10-68); BILIRUBIN - TOTAL 0.22 mg/dL (0.2-1.3); CKMB 0.2 U/L (0.0-3.6); CREATINE KINASE 24 UL (21-215); PRO BNP 37 pg/mL (0-125); PROTEIN - SERUM 6.6 g/dL (6.4-8.2); TROPONIN-I < 0.017 ng/mL (0.000-0.060)
[2019-05-23 13:57] LABS: INR 1.05 (0.85-1.17); PROTIME 13.3 SECONDS (11.6-15.0)
[2019-05-23 14:46] VITALS: BP 122/68
[2019-05-23 15:50] LABS: APPEARANCE CLEAR (CLEAR); BILIRUBIN NEGATIVE (NEGATIVE); COLOR YELLOW (YELLOW); GLUCOSE NEGATIVE (NEGATIVE); KETONE NEGATIVE (NEGATIVE); NITRITE NEGATIVE (NEGATIVE); PROTEIN TRACE mg/dL (NEGATIVE); UROBILINOGEN NORMAL (NORMAL)
--- NOTE | 2019-05-23 17:41 | NUR ---
RECEIVED PATIENT FROM ER VIA WHEELCHAIR, ACCOMPANIED BY ER STAFF. ALERT AND ORIENTED. IV TO LEFT WRIST, NS INFUSING @ 125ML/HR. SITE PATENT WITHOUT REDNESS OR SWELLING. NO C/O PAIN. NO S/S OF ACUTE DISTRESS NOTED. CALL LIGHT IN REACH. DENIES ANY NEEDS AT THIS TIME. WILL CONTINUE TO MONITOR.
--- NOTE | 2019-05-23 18:31 | NUR ---
ALERT AND ORIENTED, RESTING IN BED. NO C/O PAIN. NO S/S OF ACUTE DISTRESS NOTED. DENIES ANY NEEDS AT THIS TIME. CALL LIGHT IN REACH.
--- NOTE | 2019-05-23 19:21 | MORECARE ---
CASE MANAGEMENT DISCHARGE SUMMARY PATIENT: JULISSA GALVEZ UNIT: [id number] ADM DATE: 05/23/19 AGE: 68 : 48 SEX: F ROOM/BED: D.2226 AUTHOR: DESTINEE SMITH PHYSICIAN: REFERRING PHYSICIAN: BIMAL ROWAN MD DATE OF SERVICE: 05/23/19 Discharge Plan Patient Name: JULISSA GALVEZ Facility: [facility]:[place] : 1950 Planned Disposition: Anticipated Discharge Date: Discharge Date: Expected LOS: Initial Reviewer: [email or web address] Initial Review Date: 05/23/2019 Generated: 05/23/19 8:21 pm Comments DCP- Discharge Planning Updated by [id number]: Lee Ann Delgado on 05/23/19 6:[address] CM met with patient regarding dc needs/plans. Patient gives permission to conduct the interview and speak with her daughter Jayesh Garcias, #[phone]. Patient states she does not live alone, does not elaborate on person who lives with her. PCP: Dr. Harper. Pharmacy: [facility]. DME: Home and portable O2 ([facility]), Nebulizer, Walker, Cane, built-in tub seat. Patient states she has 2 small steps w/rails at her home entry. Discussed HHS, Rehab and at this time voices not need for either. Patient states she feels safe in her home and plans to return there upon discharge. Patient would benefit HHS upon discharge or in-patient Rehab, as she was discharged on Monday May 20, 2019. CM will continue to follow and assist with discharge needs. Coverage Notice Reviewer: [id number] - Lee Ann Delgado Notice Issued Date-Time: 05/23/2019 17:42 Notice Type: Medicare Outpatient Observation Notice Notice Delivered To: Patient Relationship to Patient: Self Paint Tester Name: Julissa Galvez Delivery Method: HAND - Hand Delivered Elsy Days: Prior Verbal Notification: Recipient Understood Notice: Recipient Signature: Yes Med Rec Note Co-signed by Attending: Coverage Notice Comment: MARTINEZ delivered to and signed by patient. Patient Name: JULISSA GALVEZ Page 10767 at 1921 All edits/amendments must be made on the electronic document DICTATION DATE: 05/23/191920 INSPECTOR RUBBER STAMP DIE: EMERSON 05/23/191920 RPT#: [id number] DC DATE: STATUS: ADM IN [facility] [address] [place] [address] END OF REPORT
[2019-05-23 20:46] VITALS: BP 137/38
[2019-05-24] VITALS (9 sets, daily range): BP systolic 122–211; BP diastolic 55–88; Ht 167.6 cm; Wt 106.6 kg
--- NOTE | 2019-05-24 01:51 | NUR ---
A/O WITH NO SIGNS OF ACUTE DISTRESS. IV TO THE LT WRIST WITH NO REDNESS OR SWELLING. IV MONITOR KEEPS GOING OFF, DC WITH CATH INTACT. RESITED IV TO LT FOREARM. DENIES NO OTHER NEEDS AT THIS TIME. CONTINUE WITH PLAN OF CARE.
[2019-05-24 05:55] LABS: BASOPHILS 0.2 % (0-2); EOSINOPHILS 0.2 % (0-7); HEMATOCRIT 36.1 % (36.0-48.0); HEMOGLOBIN 11.4 g/dL (12-16); IMMATURE GRANULOCYTES 0.2 % (0-5); LYMPHOCYTES 7.5 % (15-50); MCH 28.6 pg (26.0-34.0); MCHC 31.6 g/dL (31.0-37.0); MEAN PLATELET VOLUME 10.7 fL (7.4-10.4); MONOCYTES 4.6 % (2-11); NEUTROPHILS 87.3 % (40-80); PLATELET COUNT 122 10x3/uL (130-400); RBC 3.98 10x6/uL (4.00-5.40); RDW 12.4 % (11.5-14.5); WBC 4.8 10x3/uL (4.8-10.8)
[2019-05-24 05:57] LABS: MCV 90.7 fL (80.0-100.0)
[2019-05-24 06:37] LABS: ALBUMIN 2.9 g/dL (3.4-5.0); ANION GAP 11.3 mmol/L (8-16); BILIRUBIN - TOTAL 0.23 mg/dL (0.2-1.3); C-REACTIVE PROTEIN 15.5 mg/dL (0.0-0.9); CALCIUM 8.6 mg/dL (8.5-10.1); CARBON DIOXIDE 28.1 mmol/L (21.0-32.0); CREATININE - SERUM 1.2 mg/dL (0.6-1.3); POTASSIUM - SERUM 4.4 mmol/L (3.5-5.1); PROTEIN - SERUM 7.2 g/dL (6.4-8.2)
[2019-05-24 07:40] LABS: ERYTHROCYTE SEDIMENTATION RATE 34 mm/hr (0-30)
[2019-05-24 07:45] LABS: APTT 27.4 SECONDS (22.8-39.4); PROTIME 12.8 SECONDS (11.6-15.0)
--- NOTE | 2019-05-24 14:00 | NUR ---
SPOKE WITH DR. PENA ABOUT PATIENT INCREASED BP. NEW ORDERS RECIEVED AND CARRIED OUT.
--- NOTE | 2019-05-24 19:30 | NUR ---
PT SITTING UP IN BED WITHOUT DISTRESS, AOX4. IV LEFT FA INFUSING NS @ 125. O2 3L/NC. UP AD MELLY WITHOUT DIFFICULTY. DENIES PAIN. CL IN REACH, WILL CTM
--- NOTE | 2019-05-24 21:30 | NUR ---
PT NAUSEOUS AND VOMITING IN TO EMESIS BAG. GAVE ZOFRAN ORDERED. GAVE COLD RAG TO PLACE ON HEAD. DENIES OTHER NEEDS. WILL CTM
[2019-05-25 01:10] VITALS: BP 196/72
[2019-05-25 05:12] VITALS: BP 187/75
[2019-05-25 08:08] VITALS: BP 186/74
--- NOTE | 2019-05-25 09:00 | NUR ---
ASSESSMENT PER FLOW SHEET. PT IS WITHOUT DISTRESS.MONITOR FOR NEEDS.CALL LIGHT IN REACH
[2019-05-25 10:55] LABS: ALBUMIN 3.2 g/dL (3.4-5.0); ANION GAP 10.9 mmol/L (8-16); BILIRUBIN - TOTAL 0.15 mg/dL (0.2-1.3); CALCIUM 8.6 mg/dL (8.5-10.1); CARBON DIOXIDE 30.3 mmol/L (21.0-32.0); CREATININE - SERUM 1.1 mg/dL (0.6-1.3); POTASSIUM - SERUM 4.2 mmol/L (3.5-5.1); PROTEIN - SERUM 7.1 g/dL (6.4-8.2)
[2019-05-25 10:57] LABS: BASOPHILS 0.4 % (0-2); EOSINOPHILS 1.5 % (0-7); HEMATOCRIT 37.2 % (36.0-48.0); HEMOGLOBIN 11.7 g/dL (12-16); IMMATURE GRANULOCYTES 0.4 % (0-5); MCH 29.5 pg (26.0-34.0); MCHC 31.5 g/dL (31.0-37.0); MEAN PLATELET VOLUME 10.7 fL (7.4-10.4); MONOCYTES 5.1 % (2-11); NEUTROPHILS 79.6 % (40-80); PLATELET COUNT 120 10x3/uL (130-400); RBC 3.96 10x6/uL (4.00-5.40); RDW 12.5 % (11.5-14.5); WBC 5.5 10x3/uL (4.8-10.8)
[2019-05-25 11:06] LABS: MCV 93.9 fL (80.0-100.0)
[2019-05-25 11:20] VITALS: BP 165/71
--- NOTE | 2019-05-25 16:10 | NUR ---
HAS HAD SHOWER AND IS BACK TO BED
[2019-05-25 16:29] VITALS: BP 110/70
--- NOTE | 2019-05-25 19:20 | NUR ---
SITTING UP IN BED,PT IS WITHIOUT DISTRESS. LESS SWELLING IN RIGHT NECK/BACK. CONT PLAN OF CARE
--- NOTE | 2019-05-25 19:40 | NUR ---
PT SITTING UP IN BED WITHOUT DISTRESS, AOX4. IV LEFT FA INFUSING NS @ 30. DRESSING TO RIGHT SIDE OF NECK CDI. DENIES NEEDS. CL IN REACH, WILL CTM
--- NOTE | 2019-05-25 21:00 | NUR ---
PT GIVEN NORCO ORDERED FOR PAIN 01/02. DENIES OTHER NEEDS, WILL CTM
[2019-05-25 21:27] VITALS: BP 184/79
[2019-05-26 00:42] VITALS: BP 130/76
[2019-05-26 05:26] VITALS: BP 195/75
[2019-05-26 05:28] LABS: BASOPHILS 0 % (0-2); EOSINOPHILS 0.2 % (0-7); HEMATOCRIT 35.8 % (36.0-48.0); HEMOGLOBIN 11.8 g/dL (12-16); IMMATURE GRANULOCYTES 0.7 % (0-5); LYMPHOCYTES 10.9 % (15-50); MCH 29.8 pg (26.0-34.0); MEAN PLATELET VOLUME 10.6 fL (7.4-10.4); MONOCYTES 4.5 % (2-11); NEUTROPHILS 83.7 % (40-80); RBC 3.96 10x6/uL (4.00-5.40); RDW 12.4 % (11.5-14.5); WBC 5.5 10x3/uL (4.8-10.8)
[2019-05-26 05:43] LABS: MCV 90.4 fL (80.0-100.0); PLATELET COUNT 149 10x3/uL (130-400)
[2019-05-26 05:48] LABS: ANION GAP 11.2 mmol/L (8-16); BILIRUBIN - TOTAL 0.14 mg/dL (0.2-1.3); CALCIUM 8.9 mg/dL (8.5-10.1); CARBON DIOXIDE 29.1 mmol/L (21.0-32.0); POTASSIUM - SERUM 4.3 mmol/L (3.5-5.1); PROTEIN - SERUM 7.3 g/dL (6.4-8.2)
[2019-05-26 06:18] LABS: CREATININE - SERUM 1.1 mg/dL (0.6-1.3)
[2019-05-26 08:34] VITALS: BP 170/65
[2019-05-26] MEDS ORDERED: PREDNISONE10 MG PO (11:06)
[2019-05-26] MEDS ORDERED: CLEOCIN HCL300 MG PO (11:06)
--- NOTE | 2019-05-26 11:59 | MORECARE ---
CASE MANAGEMENT DISCHARGE SUMMARY PATIENT: JULISSA GALVEZ UNIT: [id number] ADM DATE: 05/23/19 AGE: 68 : 48 SEX: F ROOM/BED: D.2226 AUTHOR: SARAH,DOC PHYSICIAN: REFERRING PHYSICIAN: BIMAL ROWAN MD DATE OF SERVICE: 05/26/19 Discharge Plan Patient Name: JULISSA GALVEZ Facility: [facility]:[place] : 1950 Planned Disposition: Anticipated Discharge Date: Discharge Date: Expected LOS: Initial Reviewer: [email or web address] Initial Review Date: 05/23/2019 Generated: 05/26/19 12:59 pm Comments DCP- Discharge Planning Updated by [email or web address]: Rosita Seay on 05/26/19 10:[address] Patient Name: JULISSA GALVEZ Encounter No: [id number] : 1950 Primary Insurance: MEDICARE A & B Anticipated DC Date: Planned Disposition: External Planned Provider: : DCP follow-up note: Patient and family in agreement with discharge plan. No changes to plan. Staetes her brother is picking her up today. Case management will follow and assist as needed. Rosita Seay DCP- Discharge Planning Updated by [id number]: Lee Ann Delgado on 05/23/19 6:[address] CM met with patient regarding dc needs/plans. Patient gives permission to conduct the interview and speak with her daughter Jayesh Garcias, #[phone]. Patient states she does not live alone, does not elaborate on person who lives with her. PCP: Dr. Harper. [facility] DME: Home and portable O2 ([facility]), Nebulizer, Walker, Cane, built-in tub seat. Patient states she has 2 small steps w/rails at her home entry. Discussed HHS, Rehab and at this time voices not need for either. Patient states she feels safe in her home and plans to return there upon discharge. Patient would benefit HHS upon discharge or in-patient Rehab, as she was discharged on Monday May 20, 2019. CM will continue to follow and assist with discharge needs. Coverage Notice Reviewer: [id number] - Lee Ann Delgado Notice Issued Date-Time: 05/23/2019 17:42 Notice Type: Medicare Outpatient Observation Notice Notice Delivered To: Patient Relationship to Patient: Self Mental Health Worker Name: Julissa Galvez Delivery Method: HAND - Hand Delivered Elsy Days: Prior Verbal Notification: Recipient Understood Notice: Recipient Signature: Yes Med Rec Note Co-signed by Attending: Coverage Notice Comment: MARTINEZ delivered to and signed by patient. Reviewer: [email or web address] Michelle Seay Notice Issued Date-Time: 05/26/2019 11:56 Notice Type: IM Discharge Notice Notice Delivered To: Patient Relationship to Patient: Self Mental Health Worker Name: Delivery Method: HAND - Hand Delivered Elsy Days: Prior Verbal Notification: Recipient Understood Notice: Yes Recipient Signature: Yes Med Rec Note Co-signed by Attending: Coverage Notice Comment: IMM explained, signed, given, copy placed in MR Last DP export: 05/23/19 6:21 Patient Name: JULISSA GALVEZ Page 13910 at 1159 All edits/amendments must be made on the electronic document DICTATION DATE: 05/26/19 1159 MANAGER OF COMPENSATION: EMERSON 05/26/19 1159 RPT#: [id number] DC DATE: STATUS: ADM IN [facility] [address] [place] [address] END OF REPORT
[2019-05-26 12:52] VITALS: BP 182/75
--- NOTE | 2019-05-26 14:07 | NUR ---
PATIENT RECIEVED DC INSTRUCTIONS. VERBALIZED UNDERSTANDING. NO QUESTIONS AT THIS TIME. EXPLAINED TO FLUME TENDER ANTIBIOTIC AT PHARMACY. VERBALIZED UNDERSTANDING. IV REMOVED WITH CATH TIP INTACT. PATIENT WEIGHED AT REQUEST. WEIGHTED 246 LBS. WAITING FOR TRANSPORTATION FOR DC. CALL LIGHT WITHIN REACH.
--- NOTE | 2019-05-27 11:35 | MORECARE ---
CASE MANAGEMENT DISCHARGE SUMMARY PATIENT: JULISSA GALVEZ UNIT: [id number] ADM DATE: 05/23/19 AGE: 68 : 48 SEX: F ROOM/BED: D.2226 AUTHOR: SARAHDOC PHYSICIAN: REFERRING PHYSICIAN: BIMAL ROWAN MD DATE OF SERVICE: 05/27/19 Discharge Plan Patient Name: JULISSA GALVEZ Facility: [facility]:[place] : 1950 Planned Disposition: Anticipated Discharge Date: Discharge Date: 05/26/2019 Expected LOS: Initial Reviewer: [email or web address] Initial Review Date: 05/23/2019 Generated: 05/27/19 12:35 pm Comments DCP- Discharge Planning Updated by [email or web address]: Rosita Seay on 05/26/19 10:[address] Patient Name: JULISSA GALVEZ Encounter No: [id number] : 1950 Primary Insurance: MEDICARE A & B Anticipated DC Date: Planned Disposition: External Planned Provider: : DCP follow-up note: Patient and family in agreement with discharge plan. No changes to plan. Staetes her brother is picking her up today. Case management will follow and assist as needed. Rosita Seay DCP- Discharge Planning Updated by [id number]: Lee Ann Delgado on 05/23/19 6:[address] CM met with patient regarding dc needs/plans. Patient gives permission to conduct the interview and speak with her daughter Jayesh Garcias, #[phone]. Patient states she does not live alone, does not elaborate on person who lives with her. PCP: Dr. Harper. [facility] DME: Home and portable O2 ([facility]), Nebulizer, Walker, Cane, built-in tub seat. Patient states she has 2 small steps w/rails at her home entry. Discussed HHS, Rehab and at this time voices not need for either. Patient states she feels safe in her home and plans to return there upon discharge. Patient would benefit HHS upon discharge or in-patient Rehab, as she was discharged on Monday May 20, 2019. CM will continue to follow and assist with discharge needs. Coverage Notice Reviewer: [id number] - Lee Ann Delgado Notice Issued Date-Time: 05/23/2019 17:42 Notice Type: Medicare Outpatient Observation Notice Notice Delivered To: Patient Relationship to Patient: Self Paving Inspector Name: Julissa Galvez Delivery Method: HAND - Hand Delivered Elsy Days: Prior Verbal Notification: Recipient Understood Notice: Recipient Signature: Yes Med Rec Note Co-signed by Attending: Coverage Notice Comment: MARTINEZ delivered to and signed by patient. Reviewer: [id number] - Rosita Seay Notice Issued Date-Time: 05/26/2019 11:56 Notice Type: IM Discharge Notice Notice Delivered To: Patient Relationship to Patient: Self Paving Inspector Name: Delivery Method: HAND - Hand Delivered Elsy Days: Prior Verbal Notification: Recipient Understood Notice: Yes Recipient Signature: Yes Med Rec Note Co-signed by Attending: Coverage Notice Comment: IMM explained, signed, given, copy placed in MR Last DP export: 05/26/19 10:59 a Patient Name: JULISSA GALVEZ Page 31506 at 1135 All edits/amendments must be made on the electronic document DICTATION DATE: 05/27/19 1135 PROMOTION WRITER: EMERSON 05/27/19 1135 RPT#: [id number] DC DATE:05/26/19 STATUS: DIS IN [facility] [address] [place] [address] END OF REPORT
== END 2019-05-26 13:45 | disposition home or self-care (01) | DRG 824 ==
LOC: D.ER 11:57 → D.MS 17:01 → OBSVTIME 17:02 → D.MS 17:45
PROVIDERS: Family Medicine; General Practice; ADMIT Family Medicine; ATTEND Family Medicine
PROC: 07B13ZX Excision of Right Neck Lymphatic, Percutaneous Approach, Diagnostic (ICD-10-PCS; principal; 2019-05-24 10:09)
DX: C81.91 Hodgkin lymphoma, unspecified, lymph nodes of head, face, and neck (principal); J44.1 Chronic obstructive pulmonary disease with (acute) exacerbation; G93.1 Anoxic brain damage, not elsewhere classified; N17.9 Acute kidney failure, unspecified; J96.10 Chronic respiratory failure, unspecified whether with hypoxia or hypercapnia; I50.22 Chronic systolic (congestive) heart failure; D64.9 Anemia, unspecified; R25.1 Tremor, unspecified; G40.909 Epilepsy, unspecified, not intractable, without status epilepticus; R50.9 Fever, unspecified

== ENCOUNTER 2019-08-07 11:35 | Inpatient (IN) | payer MEDICARE, OTHER ==
[~2019-08-07] VITALS: Ht 167.6 cm; Wt 102.1 kg
[~2019-08-07 11:35] MED LIST changes: +CLEOCIN HCL300 MG PO
[2019-08-07 12:10] LABS: BASOPHILS 0.9 % (0-2); EOSINOPHILS 5.5 % (0-7); HEMATOCRIT 30.9 % (36.0-48.0); HEMOGLOBIN 9.3 g/dL (12-16); IMMATURE GRANULOCYTES 7.3 % (0-5); LYMPHOCYTES 41.3 % (15-50); MCH 28.1 pg (26.0-34.0); MCHC 30.1 g/dL (31.0-37.0); MCV 93.4 fL (80.0-100.0); MEAN PLATELET VOLUME 9.9 fL (7.4-10.4); MONOCYTES 24.3 % (2-11); NEUTROPHILS 20.7 % (40-80); RBC 3.31 10x6/uL (4.00-5.40); RDW 14.8 % (11.5-14.5); WBC 2.2 10x3/uL (4.8-10.8)
[2019-08-07 12:13] LABS: PLATELET COUNT 184 10x3/uL (130-400)
[2019-08-07 12:18] LABS: APTT 28.9 SECONDS (22.8-39.4); INR 0.94 (0.85-1.17); PROTIME 12.5 SECONDS (11.6-15.0)
[2019-08-07 12:41] LABS: CALC OSMOLALITY 287 mosm/kg (275-300); CARBON DIOXIDE 30.4 mmol/L (21.0-32.0); CHLORIDE - SERUM 108 mmol/L (98-107); GLUCOSE 89 mg/dL (74-106); POTASSIUM - SERUM 4.5 mmol/L (3.5-5.1); SODIUM 144 mmol/L (136-145); UREA NITROGEN 19 mg/dL (7-18); eGFR NON AFRICAN AMERICAN 58 mL/min (90-120)
[2019-08-07 12:48] LABS: ALKALINE PHOSPHATASE 97 U/L (46-116); ALT (SGPT) 18 U/L (10-68); BILIRUBIN - TOTAL 0.13 mg/dL (0.2-1.3); CKMB 0.9 U/L (0.0-3.6); CREATINE KINASE 34 UL (21-215); PRO BNP 125 pg/mL (0-125); PROTEIN - SERUM 6.2 g/dL (6.4-8.2); TROPONIN-I 0.036 ng/mL (0.000-0.060)
--- NOTE | 2019-08-07 17:04 | MORECARE ---
CASE MANAGEMENT DISCHARGE SUMMARY PATIENT: JULISSA GALVEZ UNIT: [id number] ADM DATE: 08/07/19 AGE: 68 : 48 SEX: F ROOM/BED: D.2217 AUTHOR: DESTINEE SMITH PHYSICIAN: REFERRING PHYSICIAN: MAKENNA MABRY MD DATE OF SERVICE: 08/07/19 Discharge Plan Patient Name: JULISSA GALVEZ [facility] [facility] 1950 Planned Disposition: Anticipated Discharge Date: Discharge Date: Expected LOS: Initial Reviewer: [email or web address] Initial Review Date: 08/07/2019 Generated: 08/07/19 6:04 pm DCPIA - Discharge Planning Initial Assessment Updated by [email or web address]: Lee Ann Delgado on 08/07/19 5:01 pm * How many steps to enter\exit or inside your home? 2/ramp * PCP Dr. Harper * Pharmacy [facility] * Preadmission Environment Home Alone * ADLs Independent * Equipment None * Other Equipment NA * List name and contact numbers for known caregivers / representatives who currently or will assist patient after discharge: Jose Reyes (dtr) [phone] Josee Kimble (son) [phone] * Verbal permission to speak to the caregivers and representatives has been obtained from the patient. Yes * Community resources currently utilized Other * Please name any agencies selected above. Unknown * Additional services required to return to the preadmission environment? Yes * Has this patient been hospitalized within the prior 30 days at any hospital? Yes Patient Name: JULISSA GALVEZ Page 87988 at 1704 All edits/amendments must be made on the electronic document DICTATION DATE: 08/07/191703 CLUB ROOM ATTENDANT: EMERSON 08/07/191703 RPT#: [id number] DC DATE: STATUS: ADM IN [facility] [address] [place] [address] END OF REPORT
--- NOTE | 2019-08-07 17:31 | NUR ---
1730 STOP TIME FOR DILANTIN IV.
--- NOTE | 2019-08-07 17:41 | MORECARE ---
CASE MANAGEMENT DISCHARGE SUMMARY PATIENT: JULISSA GALVEZ UNIT: [id number] ADM DATE: 08/07/19 AGE: 68 : 48 SEX: F ROOM/BED: D.2217 AUTHOR: SARAH,DOC PHYSICIAN: REFERRING PHYSICIAN: MAKENNA MABRY MD DATE OF SERVICE: 08/07/19 Discharge Plan Patient Name: JULISSA GALVEZ Facility: [facility]:[place] : 1950 Planned Disposition: Anticipated Discharge Date: Discharge Date: Expected LOS: Initial Reviewer: [email or web address] Initial Review Date: 08/07/2019 Generated: 08/07/19 6:40 pm Comments DCP- Discharge Planning Updated by [email or web address]: Lee Ann Delgado on 08/07/19 4:[address] CM met with patient to discuss initial discharge planning. Patient is in agreement to proceed with the assessment with her son present. Patient is sleepy and falls asleep quickly, son answers questions. Patient is alert, sleepy. Emergency contact: Josee Galvez (son) [phone], Jose Reyes (dtr) [phone]. Stairs/steps: 2/ramp. PCP: Dr. Harper. Pharmacy: [facility]. Patient states they have been able to obtain all of their prescribed medications. Patient lives with alone. Patient's daughter lives next door to her. HHS: someone comes in 1 day/week for PT. DME: No. Patient gives permission to speak with family members. Emergency contact: Patient is Independent with all ADL's, medication management. CM discussed the availability of HH, Rehab, DME services. It is unclear if the patient will need additional services at the time of discharge and feels safe returning to previous environment. Patient has been hospitalized X2 within the past 30 days @[facility]. 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 Transportation at time of discharge: Jose Reyes (dtr). CM will assist PRN with Dc needs/plans. DCPIA - Discharge Planning Initial Assessment Updated by [id number]: Lee Ann Delgado on 08/07/19 5:01 pm * How many steps to enter\exit or inside your home? 2/ramp * PCP Dr. Harper * Pharmacy [facility] * Preadmission Environment Home Alone * ADLs Independent * Equipment None * Other Equipment NA * List name and contact numbers for known caregivers / representatives who currently or will assist patient after discharge: Jose Reyes (dtr) [phone] Josee Kimble (son) [phone] * Verbal permission to speak to the caregivers and representatives has been obtained from the patient. Yes * Community resources currently utilized Other * Please name any agencies selected above. Unknown * Additional services required to return to the preadmission environment? Yes * Has this patient been hospitalized within the prior 30 days at any hospital? Yes Last DP export: 08/07/19 4:04 p Patient Name: JULISSA GALVEZ Page 47514 at 1741 All edits/amendments must be made on the electronic document DICTATION DATE: 08/07/191739 SENIOR ASIC DESIGN ENGINEER: EMERSON 08/07/191739 RPT#: [id number] DC DATE: STATUS: ADM IN [facility] [address] [place] [address] END OF REPORT
[2019-08-07 18:43] VITALS: BP 167/72; BMI 36.4
--- NOTE | 2019-08-07 18:52 | NUR ---
PATIENT ADMITTED FROM ER WITH WEAKNESS FOLLOWING CHEMO TREATMENT FOR HODGKINS LYMPHOMA. MEJIA HAS HX OF BREAST CANCER 6 YEARS AGO WITH BILAT MASTECTOMYS. PATIENT IS RESERVE RIGHT ARM DUE TO PORT
--- NOTE | 2019-08-07 19:05 | NUR ---
PATIENT ALERT AND ORIENTED. WEARING 2 L NC. HAS RIGHT SIDED CHEST PORT THAT IS ACCESSED AND INFUSING NS @ 50. ASSESSMENT PERFORMED. PATIENT DENIES NEEDS AT THIS TIME. PROVIDED DEPENDS PER REQUEST. BED ALARM ON AT THIS TIME. CALL LIGHT, WATER, AND PERSONAL BELONGINGS IN CLOSE REACH OF PATIENT. EDUCATED ON IMPORTANCE OF USE OF CALL LIGHT. PATIENT VERBALIZES UNDERSTANDING. CPOC.
[2019-08-07 19:30] VITALS: BP 148/58
--- NOTE | 2019-08-07 22:40 | NUR ---
PROVIDED PAIN MEDICINE PER REQUEST FOR COMPLAINTS OF PAIN OF HEAD AND TOES. PATIENT RATES PAIN 8/10.
[2019-08-08 00:30] VITALS: BP 148/60
--- NOTE | 2019-08-08 00:51 | NUR ---
MARLEN/BED ALARM WAIVER REFUSAL FORM SIGNED AND IN CHART.
[2019-08-08 00:52] LABS: APPEARANCE CLEAR (CLEAR); BILIRUBIN NEGATIVE (NEGATIVE); COLOR YELLOW (YELLOW); GLUCOSE NEGATIVE (NEGATIVE); KETONE NEGATIVE (NEGATIVE); NITRITE NEGATIVE (NEGATIVE); PROTEIN NEGATIVE (NEGATIVE); UROBILINOGEN NORMAL (NORMAL)
--- NOTE | 2019-08-08 02:46 | NUR ---
RESTING WITH NO DISTRESS NOTED AT THIS TIME. CPOC.
--- NOTE | 2019-08-08 04:40 | NUR ---
I/S, FLUTTER VALVE, AND O2 MONITORING SET UP IN ROOM PER ORDER.
[2019-08-08 05:30] VITALS: BP 138/65
--- NOTE | 2019-08-08 06:19 | NUR ---
I have reviewed this patient and I concur with the Shift Assessment completed by the Licensed Practical Nurse today this shift.
[2019-08-08 07:32] LABS: ALBUMIN 2.8 g/dL (3.4-5.0); ANION GAP 10.1 mmol/L (8-16); BILIRUBIN - TOTAL 0.1 mg/dL (0.2-1.3); CARBON DIOXIDE 29.1 mmol/L (21.0-32.0); CREATININE - SERUM 0.9 mg/dL (0.6-1.3); MAGNESIUM - SERUM 1.7 mg/dL (1.8-2.4); PHENYTOIN (DILANTIN) 8.5 ug/mL (10.0-20.0); PHOSPHOROUS 3.5 mg/dL (2.5-4.9); POTASSIUM - SERUM 4.2 mmol/L (3.5-5.1); PROTEIN - SERUM 5.7 g/dL (6.4-8.2)
--- NOTE | 2019-08-08 07:54 | NUR ---
PATIENT RESTING IN BED, NO DISTRESS, CL IN REACH. 02 SAT 96% ON 2L/NC
[2019-08-08 07:58] LABS: HEMATOCRIT 30.4 % (36.0-48.0); HEMOGLOBIN 9.3 g/dL (12-16); MCH 27.9 pg (26.0-34.0); MCHC 30.6 g/dL (31.0-37.0); MCV 91.3 fL (80.0-100.0); PLATELET COUNT 186 10x3/uL (130-400); RBC 3.33 10x6/uL (4.00-5.40); RDW 14.5 % (11.5-14.5); WBC 2.5 10x3/uL (4.8-10.8)
--- NOTE | 2019-08-08 08:00 | NUR ---
REPORTED D DIMER OF 1.21 TO JANE MARTINEZ APN WITH NO NEW ORDERS RECIEVED AT THIS TIME.
[2019-08-08 09:21] VITALS: BP 160/64
[2019-08-08 10:02] VITALS: Ht 167.6 cm; Wt 102.1 kg
[2019-08-08 10:20] LABS: EOSINOPHILS 4 % (0-7); LYMPHOCYTES 32 % (15-50); MONOCYTES 20 % (2-11); NEUTROPHILS 43 % (40-80); PLATELET ESTIMATE NORMAL; ROULEAUX OCC
[2019-08-08 13:20] VITALS: BP 172/76
[2019-08-08 14:14] LABS: % SATURATION 16 % (15-55); IRON 47 ug/dl (35-150); TOTAL IRON BIND CAPACITY 285 ug/dl (260-445); UNSAT IRON BIND CAPACITY 238 ug/dl (150-375)
[2019-08-08 16:49] LABS: APPEARANCE CLEAR (CLEAR); BILIRUBIN NEGATIVE (NEGATIVE); COLOR YELLOW (YELLOW); GLUCOSE NEGATIVE (NEGATIVE); KETONE NEGATIVE (NEGATIVE); NITRITE NEGATIVE (NEGATIVE); PROTEIN NEGATIVE (NEGATIVE); UROBILINOGEN NORMAL (NORMAL)
[2019-08-08 17:18] VITALS: BP 169/64
[2019-08-08 19:30] VITALS: BP 136/49
--- NOTE | 2019-08-08 19:30 | NUR ---
PT SITTING UP IN BED WITHOUT DISTRESS, AOX4. RIGHT CHEST PORT UNACCESSED AT THIS TIME. O2 2L/NC. SOB WITH EXERTION. FREQUENT COUGH, REPORTS WHITE SPUTUM. REFUSES TO PUT ON SCDS AT THIS TIME. DENIES NEEDS. CL IN REACH, WILL CTM
--- NOTE | 2019-08-08 23:00 | NUR ---
PT STATES PAIN IN LEGS 04/04. GAVE NORCO ORDERED. REQUESTED SOMETHING TO TAKE FOR FREQUENT COUGH. SPOKE WITH MARYBETH REDD APN ORDERED AND GIVEN. DENIES OTHER NEEDS. CL IN REACH, WILL CTM
[2019-08-09 00:30] VITALS: BP 131/56
[2019-08-09 05:30] VITALS: BP 167/59
[2019-08-09 07:34] LABS: ALBUMIN 3.1 g/dL (3.4-5.0); ALKALINE PHOSPHATASE 100 U/L (46-116); ALT (SGPT) 16 U/L (10-68); CALC OSMOLALITY 281 mosm/kg (275-300); CALCIUM 8.4 mg/dL (8.5-10.1); CARBON DIOXIDE 29.4 mmol/L (21.0-32.0); CHLORIDE - SERUM 107 mmol/L (98-107); GLUCOSE 87 mg/dL (74-106); MAGNESIUM - SERUM 1.7 mg/dL (1.8-2.4); PHOSPHOROUS 3.9 mg/dL (2.5-4.9); SODIUM 142 mmol/L (136-145); UREA NITROGEN 12 mg/dL (7-18)
[2019-08-09 07:35] LABS: CREATININE - SERUM 0.6 mg/dL (0.6-1.3); POTASSIUM - SERUM 4.6 mmol/L (3.5-5.1); eGFR NON AFRICAN AMERICAN > 90 mL/min (90-120)
[2019-08-09 08:17] LABS: BASOPHILS 2.1 % (0-2); EOSINOPHILS 5.3 % (0-7); HEMATOCRIT 32.5 % (36.0-48.0); HEMOGLOBIN 10.4 g/dL (12-16); IMMATURE GRANULOCYTES 8.6 % (0-5); LYMPHOCYTES 27.1 % (15-50); MCH 28.2 pg (26.0-34.0); MEAN PLATELET VOLUME 10.3 fL (7.4-10.4); MONOCYTES 16.2 % (2-11); NEUTROPHILS 40.7 % (40-80); PLATELET COUNT 160 10x3/uL (130-400); RBC 3.69 10x6/uL (4.00-5.40); RDW 14.5 % (11.5-14.5)
[2019-08-09 08:18] LABS: MCV 88.1 fL (80.0-100.0); WBC 3.4 10x3/uL (4.8-10.8)
[2019-08-09 09:38] VITALS: BP 136/63
[2019-08-09 11:56] LABS: PLATELET ESTIMATE NORMAL; ROULEAUX OCC
--- NOTE | 2019-08-09 13:15 | NUR ---
0800 RESTING IN BED, NO DISTRESS NOTED, NO IV ACCESS, CONT TO MONITOR HYDRATION
[2019-08-09 13:19] VITALS: BP 169/73
[2019-08-09 17:15] VITALS: BP 171/77
[2019-08-09 20:00] VITALS: BP 159/69
--- NOTE | 2019-08-10 03:51 | NUR ---
PT RESTING IN BED. EYES CLOSED. NO SIGNS OF DISTRESS. BREATHING EVEN AND UNLABORED. NO IV SITE PRESENT. SKIN CLEAN DRY AND ITNACT. BOWEL SOUNDS ACTIVE. LUNG SOUNDS CLEAR. NO LOWER LEG SWELLING PRESENT. WILL CONTINUE PLAN OF CARE. CALL LIGHT IN REACH. BED LOWERED AND LOCKED. BED RAILS UPX2.
[2019-08-10 04:00] VITALS: BP 123/55
--- NOTE | 2019-08-10 04:24 | NUR ---
I have reviewed this patient and I concur with the Shift Assessment completed by the Licensed Practical Nurse today this shift.
--- NOTE | 2019-08-10 04:25 | NUR ---
I have reviewed this patient and I concur with the Shift Assessment completed by the Licensed Practical Nurse today this shift.
[2019-08-10 05:02] LABS: HEMATOCRIT 31.5 % (36.0-48.0); HEMOGLOBIN 9.8 g/dL (12-16); MCH 27.8 pg (26.0-34.0); MCHC 31.1 g/dL (31.0-37.0); MCV 89.2 fL (80.0-100.0); MEAN PLATELET VOLUME 9.5 fL (7.4-10.4); RBC 3.53 10x6/uL (4.00-5.40); RDW 14.7 % (11.5-14.5); WBC 3.9 10x3/uL (4.8-10.8)
[2019-08-10 05:09] LABS: PLATELET COUNT 197 10x3/uL (130-400)
[2019-08-10 05:27] LABS: ALBUMIN 2.9 g/dL (3.4-5.0); ALKALINE PHOSPHATASE 90 U/L (46-116); ALT (SGPT) 14 U/L (10-68); BILIRUBIN - TOTAL 0.18 mg/dL (0.2-1.3); CALC OSMOLALITY 282 mosm/kg (275-300); CARBON DIOXIDE 30.1 mmol/L (21.0-32.0); CHLORIDE - SERUM 108 mmol/L (98-107); GLUCOSE 89 mg/dL (74-106); MAGNESIUM - SERUM 1.5 mg/dL (1.8-2.4); PROTEIN - SERUM 5.9 g/dL (6.4-8.2); SODIUM 143 mmol/L (136-145); UREA NITROGEN 10 mg/dL (7-18)
[2019-08-10 05:30] LABS: CREATININE - SERUM 0.8 mg/dL (0.6-1.3); POTASSIUM - SERUM 3.9 mmol/L (3.5-5.1); eGFR NON AFRICAN AMERICAN 75 mL/min (90-120)
--- NOTE | 2019-08-10 07:57 | NUR ---
AWAKE AND ALERT. OREINTED X3. NO C/O AT THIS TIME. LUNGS HAVE CRACKLES AND WHEEZES THROUGHOUT. PRODUCTIVE COUGH NOTED WITH WHITISH SPUTUM. NO IV ACCESS AT THIS TIME. SKIN IS INTACT WITHOUT REDNESS. DENIES NEEDS.
[2019-08-10 08:39] VITALS: BP 165/72
[2019-08-10 09:09] LABS: EOSINOPHILS 2 % (0-7); LYMPHOCYTES 22 % (15-50); MONOCYTES 14 % (2-11); NEUTROPHILS 59 % (40-80); PLATELET ESTIMATE NORMAL
--- NOTE | 2019-08-10 11:00 | NUR ---
RIGHT PORT ACCESSED WITH ONE STICK. GOOD BLOOD RETURN. HEPRANIZED WITH 300 UNITS HEPARIN AND DEACCESSED.
--- NOTE | 2019-08-10 11:00 | NUR ---
NUTRITION F/U PT TOLERATING AHA DIET WITH 100% INTAKE RECENT MEALS. BM RECORDED ON 08/08/19. WILL CONTINUE TO PROVIDE DIET, MONITORO PO INTAKE. RD FOLLOWING
--- NOTE | 2019-08-10 12:20 | MORECARE ---
CASE MANAGEMENT DISCHARGE SUMMARY PATIENT: JULISSA GALVEZ UNIT: [id number] ADM DATE: 08/07/19 AGE: 68 : 48 SEX: F ROOM/BED: D.2217 AUTHOR: SARAH,DOC PHYSICIAN: REFERRING PHYSICIAN: MAKENNA MABRY MD DATE OF SERVICE: 08/10/19 Discharge Plan Patient Name: JULISSA GALVEZ Facility: [facility]:[place] : 1950 Planned Disposition: Home with Home Health Anticipated Discharge Date: Discharge Date: Expected LOS: Initial Reviewer: [email or web address] Initial Review Date: 08/07/2019 Generated: 08/10/19 1:19 pm Comments DCP- Discharge Planning Updated by [email or web address]: Tamy Nolasco on 08/10/19 11:[address] PATIENT WILL BE DISCHARGING HOME TODAY WITH [facility] ([place] SIGNED AND PLACED IN CHART) PATIENT DENIES ANY OTHER NEEDS. [facility] SERVED AND EXPLAINED TO PATIENT. PATIENT FEELS SAFE DISCHARING HOME TODAY. CM TO FOLLOW AND ASSIST WITH DC PLANNING DCP- Discharge Planning Updated by [email or web address]: Lee Annkvng Delgado on 08/07/19 4:[address] CM met with patient to discuss initial discharge planning. Patient is in agreement to proceed with the assessment with her son present. Patient is sleepy and falls asleep quickly, son answers questions. Patient is alert, sleepy. Emergency contact: Josee Galvez (son) [phone], Jose Reyes (dtr) [phone]. Stairs/steps: 2/ramp. PCP: Dr. Harper. Pharmacy: [facility]. Patient states they have been able to obtain all of their prescribed medications. Patient lives with alone. Patient's daughter lives next door to her. HHS: someone comes in 1 day/week for PT. DME: No. Patient gives permission to speak with family members. Emergency contact: Patient is Independent with all ADL's, medication management. CM discussed the availability of HH, Rehab, DME services. It is unclear if the patient will need additional services at the time of discharge and feels safe returning to previous environment. Patient has been hospitalized X2 within the past 30 days @[facility]. 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 Transportation at time of discharge: Jose Reyes (dtr). CM will assist PRN with Dc needs/plans. DCPIA - Discharge Planning Initial Assessment Updated by [id number]: Lee Ann Delgado on 08/07/19 5:01 pm * How many steps to enter\exit or inside your home? 2/ramp * PCP Dr. Harper * Pharmacy [facility] * Preadmission Environment Home Alone * ADLs Independent * Equipment None * Other Equipment NA * List name and contact numbers for known caregivers / representatives who currently or will assist patient after discharge: Jose Reyes (dtr) [phone] Josee Kimble (son) [phone] * Verbal permission to speak to the caregivers and representatives has been obtained from the patient. Yes * Community resources currently utilized Other * Please name any agencies selected above. Unknown * Additional services required to return to the preadmission environment? Yes * Has this patient been hospitalized within the prior 30 days at any hospital? Yes Last DP export: 08/07/19 4:41 p Patient Name: JULISSA GALVEZ Page 40123 at 1220 All edits/amendments must be made on the electronic document DICTATION DATE: 08/10/191218 SUPERVISOR BELT AND LINK ASSEMBLY: EMERSON 08/10/191218 RPT#: [id number] DC DATE: STATUS: ADM IN [facility] [address] [place] [address] END OF REPORT
--- NOTE | 2019-08-10 12:30 | NUR ---
DISCHARGED TO HOME AMBULATORY WITH FRIEND.. DISCHARGE INSTRUCTIONS GIVEN BOTH VERBALLY AND WRITTEN. ALL QUESTIONS ANSWERED. PATIENT VERBALIZED UNDERSTANDING OF SAME. NO NEW PRESCRIPTIONS NEEDED. ALL BELONGINGS WITH PATIENT.
--- NOTE | 2019-08-10 12:36 | MORECARE ---
CASE MANAGEMENT DISCHARGE SUMMARY PATIENT: JULISSA GALVEZ UNIT: [id number] ADM DATE: 08/07/19 AGE: 68 : 48 SEX: F ROOM/BED: D.2217 AUTHOR: SARAH,DOC PHYSICIAN: REFERRING PHYSICIAN: MAKENNA MABRY MD DATE OF SERVICE: 08/10/19 Discharge Plan Patient Name: JULISSA GALVEZ Facility: [facility]:[place] : 1950 Planned Disposition: Home with Home Health Anticipated Discharge Date: Discharge Date: Expected LOS: Initial Reviewer: [email or web address] Initial Review Date: 08/07/2019 Generated: 08/10/19 1:35 pm Comments DCP- Discharge Planning Updated by [email or web address]: Tamy Nolasco on 08/10/19 11:[address] PATIENT WILL BE DISCHARGING HOME TODAY WITH [facility] ([place] SIGNED AND PLACED IN CHART) PATIENT DENIES ANY OTHER NEEDS. [facility] SERVED AND EXPLAINED TO PATIENT. PATIENT FEELS SAFE DISCHARING HOME TODAY. CM TO FOLLOW AND ASSIST WITH DC PLANNING DCP- Discharge Planning Updated by [email or web address]: Lee Annkvng Delgado on 08/07/19 4:[address] CM met with patient to discuss initial discharge planning. Patient is in agreement to proceed with the assessment with her son present. Patient is sleepy and falls asleep quickly, son answers questions. Patient is alert, sleepy. Emergency contact: Josee Galvez (son) [phone], Jose Reyes (dtr) [phone]. Stairs/steps: 2/ramp. PCP: Dr. Harper. Pharmacy: [facility]. Patient states they have been able to obtain all of their prescribed medications. Patient lives with alone. Patient's daughter lives next door to her. HHS: someone comes in 1 day/week for PT. DME: No. Patient gives permission to speak with family members. Emergency contact: Patient is Independent with all ADL's, medication management. CM discussed the availability of HH, Rehab, DME services. It is unclear if the patient will need additional services at the time of discharge and feels safe returning to previous environment. Patient has been hospitalized X2 within the past 30 days @[facility]. 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 Transportation at time of discharge: Jose Reyes (dtr). CM will assist PRN with Dc needs/plans. DCPIA - Discharge Planning Initial Assessment Updated by [email or web address]: Lee Ann Delgado on 08/07/19 5:01 pm * How many steps to enter\exit or inside your home? 2/ramp * PCP Dr. Harper * Pharmacy [facility] * Preadmission Environment Home Alone * ADLs Independent * Equipment None * Other Equipment NA * List name and contact numbers for known caregivers / representatives who currently or will assist patient after discharge: Jose Reyes (dtr) [phone] Josee Kimble (son) [phone] * Verbal permission to speak to the caregivers and representatives has been obtained from the patient. Yes * Community resources currently utilized Other * Please name any agencies selected above. Unknown * Additional services required to return to the preadmission environment? Yes * Has this patient been hospitalized within the prior 30 days at any hospital? Yes External Providers External Provider: [facility] Next Contact Date: Service Request Date: Service Type: Resolution: Reviewer: Comments: Coverage Notice Reviewer: [email or web address] Nolasco Notice Issued Date-Time: 08/10/2019 12:10 Notice Type: IM Discharge Notice Notice Delivered To: Patient Relationship to Patient: Investigator Internal Revenue Name: Delivery Method: HAND - Hand Delivered Elsy Days: Prior Verbal Notification: Recipient Understood Notice: Yes Recipient Signature: Yes Med Rec Note Co-signed by Attending: Coverage Notice Comment: Reviewer: [email or web address] Nolasco Notice Issued Date-Time: 08/10/2019 12:10 Notice Type: Patient Choice Letter Notice Delivered To: Patient Relationship to Patient: Investigator Internal Revenue Name: Delivery Method: HAND - Hand Delivered Elsy Days: Prior Verbal Notification: Recipient Understood Notice: Yes Recipient Signature: Yes Med Rec Note Co-signed by Attending: Coverage Notice Comment: Last DP export: 08/10/19 11:20 a Patient Name: JULISSA GALVEZ Page 58534 at 1236 All edits/amendments must be made on the electronic document DICTATION DATE: 08/10/19 1235 SOLDERER FURNACE: EMERSON 08/10/19 1235 RPT#: [id number] DC DATE: STATUS: ADM IN [facility] [address] [place] [address] END OF REPORT
[2019-08-10] MEDS ORDERED: SLOW RELEASE I160 MG PO (13:01)
--- NOTE | 2019-08-11 08:30 | MORECARE ---
CASE MANAGEMENT DISCHARGE SUMMARY PATIENT: JULISSA GALVEZ UNIT: [id number] ADM DATE: 08/07/19 AGE: 68 : 48 SEX: F ROOM/BED: D.9587 AUTHOR: SARAH,DOC PHYSICIAN: REFERRING PHYSICIAN: MAKENNA MABRY MD DATE OF SERVICE: 08/11/19 Discharge Plan Patient Name: UJLISSA GALVEZ Facility: [facility]:[place] : 1950 Planned Disposition: Home with Home Health Anticipated Discharge Date: Discharge Date: 08/10/2019 Expected LOS: 0 Initial Reviewer: [email or web address] Initial Review Date: 08/07/2019 Generated: 08/11/19 9:30 am Comments DCP- Discharge Planning Updated by [email or web address]: Tamy Nolasco on 08/10/19 11:[address] PATIENT WILL BE DISCHARGING HOME TODAY WITH [facility] ([facility] SIGNED AND PLACED IN CHART) PATIENT DENIES ANY OTHER NEEDS. [facility] SERVED AND EXPLAINED TO PATIENT. PATIENT FEELS SAFE DISCHARING HOME TODAY. CM TO FOLLOW AND ASSIST WITH DC PLANNING DCP- Discharge Planning Updated by [email or web address]: Lee Annkvng Delgado on 08/07/19 4:[address] CM met with patient to discuss initial discharge planning. Patient is in agreement to proceed with the assessment with her son present. Patient is sleepy and falls asleep quickly, son answers questions. Patient is alert, sleepy. Emergency contact: Josee Galvez (son) [phone], Jose Reyes (dtr) [phone]. Stairs/steps: 2/ramp. PCP: Dr. Harper. Pharmacy: [facility]. Patient states they have been able to obtain all of their prescribed medications. Patient lives with alone. Patient's daughter lives next door to her. HHS: someone comes in 1 day/week for PT. DME: No. Patient gives permission to speak with family members. Emergency contact: Patient is Independent with all ADL's, medication management. CM discussed the availability of HH, Rehab, DME services. It is unclear if the patient will need additional services at the time of discharge and feels safe returning to previous environment. Patient has been hospitalized X2 within the past 30 days @[facility]. Patient denies the use of community resources MANAGER BOOK. Transportation at time of discharge: Jose Reyes (dtr). CM will assist PRN with Dc needs/plans. DCPIA - Discharge Planning Initial Assessment Updated by [email or web address]: Lee Ann Delgado on 08/07/19 5:01 pm * How many steps to enter\exit or inside your home? 2/ramp * PCP Dr. Harper * Pharmacy [facility] * Preadmission Environment Home Alone * ADLs Independent * Equipment None * Other Equipment NA * List name and contact numbers for known caregivers / representatives who currently or will assist patient after discharge: Jose Reyes (dtr) [phone] Josee Kimble (son) [phone] * Verbal permission to speak to the caregivers and representatives has been obtained from the patient. Yes * Community resources currently utilized Other * Please name any agencies selected above. Unknown * Additional services required to return to the preadmission environment? Yes * Has this patient been hospitalized within the prior 30 days at any hospital? Yes Coverage Notice Reviewer: [id number] Nolasco Notice Issued Date-Time: 08/10/2019 12:10 Notice Type: IM Discharge Notice Notice Delivered To: Patient Relationship to Patient: Autocad Draftsman Name: Delivery Method: HAND - Hand Delivered Elsy Days: Prior Verbal Notification: Recipient Understood Notice: Yes Recipient Signature: Yes Med Rec Note Co-signed by Attending: Coverage Notice Comment: Reviewer: [id number] Nolasco Notice Issued Date-Time: 08/10/2019 12:10 Notice Type: Patient Choice Letter Notice Delivered To: Patient Relationship to Patient: Autocad Draftsman Name: Delivery Method: HAND - Hand Delivered Elsy Days: Prior Verbal Notification: Recipient Understood Notice: Yes Recipient Signature: Yes Med Rec Note Co-signed by Attending: Coverage Notice Comment: Last DP export: 08/10/19 11:36 a Patient Name: JULISSA GALVEZ Page [phone] at 0830 All edits/amendments must be made on the electronic document DICTATION DATE: 08/11/1930 PHYTOPATHOLOGIST: EMERSON 08/11/19829 RPT#: [id number] DC DATE:08/10/19 STATUS: DIS IN [place] [id number] [place] [address] END OF REPORT
== END 2019-08-10 12:30 | disposition home health service (06) | DRG 808 ==
LOC: D.ER 11:35 → D.MS 14:32
PROVIDERS: Family Medicine; ADMIT Internal Medicine Nephrology; ATTEND Internal Medicine Nephrology
DX: D70.1 Agranulocytosis secondary to cancer chemotherapy (principal); E43 Unspecified severe protein-calorie malnutrition; C81.90 Hodgkin lymphoma, unspecified, unspecified site; I50.22 Chronic systolic (congestive) heart failure; J44.9 Chronic obstructive pulmonary disease, unspecified; K21.9 Gastro-esophageal reflux disease without esophagitis; K27.9 Peptic ulcer, site unspecified, unspecified as acute or chronic, without hemorrhage or perforation; I11.0 Hypertensive heart disease with heart failure; M19.90 Unspecified osteoarthritis, unspecified site; G62.9 Polyneuropathy, unspecified; G40.909 Epilepsy, unspecified, not intractable, without status epilepticus; D64.89 Other specified anemias

== ENCOUNTER → 2019-09-27 11:21 | Outpatient (CLI) | payer MEDICARE, OTHER ==
[2019-08-08 10:02] VITALS: BMI 36.3
[~2019-09-27 11:21] MED LIST changes: +SLOW RELEASE I160 MG PO
== END | disposition home or self-care (01) ==
LOC: D.RAD 11:21
PROVIDERS: ATTEND Nurse Practitioner Family
DX: R07.81 Pleurodynia (principal)

== ENCOUNTER 2020-03-18 16:58 | Inpatient (IN) | payer MEDICARE, OTHER ==
[~2020-03-18] VITALS: Ht 167.6 cm; Wt 114.1 kg
[2020-03-18 18:37] LABS: BASOPHILS 0.4 % (0-2); EOSINOPHILS 5.4 % (0-7); HEMATOCRIT 32.7 % (36.0-48.0); HEMOGLOBIN 10.2 g/dL (12-16); IMMATURE GRANULOCYTES 0.2 % (0-5); LYMPHOCYTES 20.9 % (15-50); MCH 29.4 pg (26.0-34.0); MCHC 31.2 g/dL (31.0-37.0); MCV 94.2 fL (80.0-100.0); MEAN PLATELET VOLUME 9.3 fL (7.4-10.4); MONOCYTES 10.1 % (2-11); PLATELET COUNT 170 10x3/uL (130-400); RBC 3.47 10x6/uL (4.00-5.40); RDW 13.1 % (11.5-14.5)
[2020-03-18 18:44] LABS: INR 0.93 (0.85-1.17); PROTIME 12.4 SECONDS (11.6-15.0)
[2020-03-18 19:29] VITALS: BP 171/46
[2020-03-18 19:50] LABS: CALC OSMOLALITY 277 mosm/kg (275-300); CALCIUM 8.5 mg/dL (8.5-10.1); CARBON DIOXIDE 31.1 mmol/L (21.0-32.0); CHLORIDE - SERUM 107 mmol/L (98-107); CREATININE - SERUM 0.8 mg/dL (0.6-1.3); GLUCOSE 101 mg/dL (74-106); SODIUM 139 mmol/L (136-145); UREA NITROGEN 12 mg/dL (7-18); eGFR NON AFRICAN AMERICAN 75 mL/min (90-120)
[2020-03-18 20:11] LABS: ALBUMIN 3.2 g/dL (3.4-5.0); ALKALINE PHOSPHATASE 116 U/L (30-120); ALT (SGPT) 23 U/L (10-68); BILIRUBIN - TOTAL 0.15 mg/dL (0.2-1.3); CKMB 4.4 U/L (0.0-3.6); CREATINE KINASE 112 UL (21-215); PRO BNP 518 pg/mL (0-125); PROTEIN - SERUM 6.2 g/dL (6.4-8.2)
[2020-03-18 23:57] VITALS: BP 163/71; BMI 40.6
--- NOTE | 2020-03-19 01:36 | NUR ---
PATIENT REQUESTING HER PRAMIPEXOLE. PAGED MORRIS JUNIOR APN. RECEIVED RETURN CALL NO NEW ORDERS GIVEN. PATIENT NEEDS TO DISCUSS WITH MD IN AM D/T HER HAVING CP.
[2020-03-19 01:39] LABS: CKMB 3.4 U/L (0.0-3.6); CREATINE KINASE 103 UL (21-215)
[2020-03-19 04:00] VITALS: BP 128/52
[2020-03-19 05:44] LABS: BASOPHILS 0.5 % (0-2); EOSINOPHILS 6.1 % (0-7); HEMATOCRIT 31.6 % (36.0-48.0); IMMATURE GRANULOCYTES 0.5 % (0-5); LYMPHOCYTES 23.1 % (15-50); MCH 29.9 pg (26.0-34.0); MCHC 31.6 g/dL (31.0-37.0); MCV 94.3 fL (80.0-100.0); MEAN PLATELET VOLUME 9.3 fL (7.4-10.4); NEUTROPHILS 60.8 % (40-80); PLATELET COUNT 148 10x3/uL (130-400); RBC 3.35 10x6/uL (4.00-5.40); RDW 13.3 % (11.5-14.5); WBC 4.1 10x3/uL (4.8-10.8)
[2020-03-19 06:12] LABS: CALC OSMOLALITY 281 mosm/kg (275-300); CALCIUM 8.2 mg/dL (8.5-10.1); CARBON DIOXIDE 32.5 mmol/L (21.0-32.0); CHLORIDE - SERUM 106 mmol/L (98-107); CKMB 2.5 U/L (0.0-3.6); CREATINE KINASE 77 UL (21-215); GLUCOSE 94 mg/dL (74-106); MAGNESIUM - SERUM 1.8 mg/dL (1.8-2.4); PHENYTOIN (DILANTIN) 3.6 ug/mL (10.0-20.0); PHOSPHOROUS 4.8 mg/dL (2.5-4.9); POTASSIUM - SERUM 3.8 mmol/L (3.5-5.1); SODIUM 141 mmol/L (136-145); THYROID STIMULATING HORMONE 6.82 uIU/mL (0.36-3.74); TROPONIN-I 0.053 ng/mL (0.000-0.060); UREA NITROGEN 15 mg/dL (7-18); eGFR NON AFRICAN AMERICAN 58 mL/min (90-120)
[2020-03-19 09:36] VITALS: BP 154/51
[2020-03-19 10:36] LABS: BILIRUBIN NEGATIVE (NEGATIVE); KETONE NEGATIVE (NEGATIVE); NITRITE NEGATIVE (NEGATIVE); UROBILINOGEN NORMAL (NORMAL)
[2020-03-19 10:37] LABS: BACTERIA FEW /hpf (NEGATIVE); EPITHELIAL CELLS 0-5 /hpf (0-5); RED CELLS - URINE RARE /hpf (0-5); WHITE CELLS - URINE 25-50 /hpf (NEGATIVE)
[2020-03-19 13:39] VITALS: BP 122/54
[2020-03-19 14:00] LABS: CKMB 2.5 U/L (0.0-3.6); CREATINE KINASE 85 UL (21-215); TROPONIN-I 0.055 ng/mL (0.000-0.060)
[2020-03-19 16:49] VITALS: Ht 167.6 cm; Wt 114.1 kg
[2020-03-19 20:00] VITALS: BP 149/58
[2020-03-20] VITALS: BP 131/77
[2020-03-20 04:00] VITALS: BP 140/56
[2020-03-20 06:43] LABS: BASOPHILS 0.2 % (0-2); EOSINOPHILS 6.7 % (0-7); HEMATOCRIT 32.1 % (36.0-48.0); HEMOGLOBIN 10.1 g/dL (12-16); IMMATURE GRANULOCYTES 0.2 % (0-5); LYMPHOCYTES 19.4 % (15-50); MCH 29.7 pg (26.0-34.0); MCHC 31.5 g/dL (31.0-37.0); MCV 94.4 fL (80.0-100.0); MEAN PLATELET VOLUME 9.1 fL (7.4-10.4); MONOCYTES 10.8 % (2-11); NEUTROPHILS 62.7 % (40-80); PLATELET COUNT 147 10x3/uL (130-400); RDW 13.2 % (11.5-14.5); WBC 4.2 10x3/uL (4.8-10.8)
[2020-03-20 07:31] VITALS: BP 137/44
[2020-03-20 07:46] LABS: ANION GAP 8.5 mmol/L (8-16); CREATININE - SERUM 0.9 mg/dL (0.6-1.3); MAGNESIUM - SERUM 1.9 mg/dL (1.8-2.4); PHOSPHOROUS 4.7 mg/dL (2.5-4.9); POTASSIUM - SERUM 3.5 mmol/L (3.5-5.1)
[2020-03-20 14:12] VITALS: BP 146/36
[2020-03-20 17:02] VITALS: BP 126/55
--- NOTE | 2020-03-20 20:42 | NUR ---
REPORT RECEIVED, WILL CONT POC. PT A&O, UP IN BED WATCHING TV WITH BROTHER AT BEDSIDE. NO S/S DISTRESS NOTED. RR EVEN & UNLABORED ON RA. PT DENIES NEEDS AT THIS TIME. BED LOCK AND LOWERED, CALL LIGHT IN REACH. ASSESSMENT COMPLETED AT THIS TIME. WILL CONT TO MONITOR.
[2020-03-20 22:47] VITALS: BP 104/68
[2020-03-21 04:00] VITALS: BP 123/47
[2020-03-21 05:38] LABS: BASOPHILS 0.5 % (0-2); EOSINOPHILS 6.1 % (0-7); HEMATOCRIT 32.7 % (36.0-48.0); HEMOGLOBIN 10.3 g/dL (12-16); IMMATURE GRANULOCYTES 0.5 % (0-5); LYMPHOCYTES 24.1 % (15-50); MCH 29.9 pg (26.0-34.0); MCHC 31.5 g/dL (31.0-37.0); MCV 94.8 fL (80.0-100.0); MEAN PLATELET VOLUME 9.4 fL (7.4-10.4); MONOCYTES 8.9 % (2-11); NEUTROPHILS 59.9 % (40-80); PLATELET COUNT 157 10x3/uL (130-400); RBC 3.45 10x6/uL (4.00-5.40); RDW 13.1 % (11.5-14.5); WBC 4.4 10x3/uL (4.8-10.8)
[2020-03-21 06:09] LABS: ANION GAP 7.8 mmol/L (8-16); CALCIUM 8.1 mg/dL (8.5-10.1); CARBON DIOXIDE 32.6 mmol/L (21.0-32.0); CREATININE - SERUM 1.1 mg/dL (0.6-1.3); MAGNESIUM - SERUM 1.8 mg/dL (1.8-2.4); PHOSPHOROUS 4.5 mg/dL (2.5-4.9); POTASSIUM - SERUM 3.4 mmol/L (3.5-5.1)
[2020-03-21 09:01] VITALS: BP 156/66
[2020-03-21] MEDS ORDERED: KEFLEX500 MG PO (11:56)
--- NOTE | 2020-03-21 13:33 | NUR ---
IV AND TELEMETRY DCD. DC PLANS GIVEN. UNDERSTANDING VOICED. ESCORTED TO CAR BY W/C.
--- NOTE | 2020-03-21 13:48 | MORECARE ---
CASE MANAGEMENT DISCHARGE SUMMARY PATIENT: JULISSA GALVEZ UNIT: [id number] ADM DATE: 03/18/20 AGE: 69 : 48 SEX: F ROOM/BED: D.5638 AUTHOR: SARAHDOC PHYSICIAN: REFERRING PHYSICIAN: LALIT HOLLOWAY DO DATE OF SERVICE: 03/21/20 Discharge Plan Patient Name: JULISSA GALVEZ Facility: [facility]:[place] : 1950 Planned Disposition: Home with Home Health Anticipated Discharge Date: Discharge Date: 03/21/2020 Expected LOS: Initial Reviewer: [email or web address] Initial Review Date: 03/21/2020 Generated: 03/21/20 2:47 pm Comments DCP- Discharge Planning Updated by [id number]: Rosita Seay on 03/21/20 12:[address] Patient Name: JULISSA GALVEZ Admission Status: ER Accout number: [id number] Admission Date: 03-18-2020 : 1950 Admission Diagnosis:CHEST PAIN, UNSPECIFIED Attending: LALIT HOLLOWAY Current LOS: 3 Anticipated DC Date: Planned Disposition: Home with Home Health Primary Insurance: MEDICARE A & B Discharge Planning Comments: CM met with patient to complete initial dc planning assessment. CM educated patient on the CM role and verbal consent given by patient to complete assessment. Patient lives at home alone. At discharge patient plans to return home and feels this is a safe discharge. I discussed home health, rehab and medical equipment. States she has home health with [facility] and would like it resumed. I called [facility] and spoke to Idania and they will resume care, clinical and dc med list faxed. Home today with home health. Clinical Genetics Laboratory Chief: Rosita Seay DCPIA - Discharge Planning Initial Assessment Updated by [id number]: Rosita Seay on 03/21/20 1:44 pm * Is the patient Alert and Oriented? Yes * How many steps to enter\exit or inside your home? 2/0 * PCP Dr. Harper * Pharmacy [facility] * Preadmission Environment Home Alone * ADLs Independent * Equipment Cane Walker Wheelchair * List name and contact numbers for known caregivers / representatives who currently or will assist patient after discharge: Concetta Galvez - DTR - [phone] * Verbal permission to speak to the caregivers and representatives has been obtained from the patient. Yes * Community resources currently utilized Home Health * Please name any agencies selected above. [facility] * Additional services required to return to the preadmission environment? No * Can the patient safely return to the preadmission environment? Yes * Has this patient been hospitalized within the prior 30 days at any hospital? No External Providers External Provider: [facility] Next Contact Date: Service Request Date: Service Type: Resolution: Reviewer: Comments: Coverage Notice Reviewer: [id number] Seay Notice Issued Date-Time: 03/21/2020 13:46 Notice Type: IM Discharge Notice Notice Delivered To: Patient Relationship to Patient: Self Clinical Genetics Laboratory Chief Name: Delivery Method: HAND - Hand Delivered Elsy Days: Prior Verbal Notification: Recipient Understood Notice: Yes Recipient Signature: Yes Med Rec Note Co-signed by Attending: Coverage Notice Comment: Reviewer: [id number] Seay Notice Issued Date-Time: 03/21/2020 13:46 Notice Type: Patient Choice Letter Notice Delivered To: Patient Relationship to Patient: Self Clinical Genetics Laboratory Chief Name: Delivery Method: HAND - Hand Delivered Elsy Days: Prior Verbal Notification: Recipient Understood Notice: Yes Recipient Signature: Yes Med Rec Note Co-signed by Attending: Coverage Notice Comment: [facility] Patient Name: JULISSA GALVEZ Page [id number] at 1348 All edits/amendments must be made on the electronic document DICTATION DATE: 03/21/20 1348 BUSINESS RESILIENCY MANAGER: EMERSON 03/21/20 1348 RPT#: [id number] DC DATE:03/21/20 STATUS: DIS IN [facility] [address] [place] [address] END OF REPORT
--- NOTE | 2020-03-22 14:46 | MORECARE ---
CASE MANAGEMENT DISCHARGE SUMMARY PATIENT: JULISSA GALVEZ UNIT: [id number] ADM DATE: 03/18/20 AGE: 69 : 48 SEX: F ROOM/BED: D.0627 AUTHOR: SARAH,DOC PHYSICIAN: REFERRING PHYSICIAN: LALIT HOLLOWAY DO DATE OF SERVICE: 03/22/20 Discharge Plan Patient Name: JULISSA GALVEZ Facility: [facility]:[place] : 1950 Planned Disposition: Home with Home Health Anticipated Discharge Date: Discharge Date: 03/21/2020 Expected LOS: 0 Initial Reviewer: [email or web address] Initial Review Date: 03/21/2020 Generated: 03/22/20 3:46 pm Comments DCP- Discharge Planning Updated by [id number]: Rosita Seay on 03/21/20 12:[address] Patient Name: JULISSA GALVEZ Admission Status: ER Accout number: [id number] Admission Date: 03-18-2020 : 1950 Admission Diagnosis:CHEST PAIN, UNSPECIFIED Attending: LALIT HOLLOWAY Current LOS: 3 Anticipated DC Date: Planned Disposition: Home with Home Health Primary Insurance: MEDICARE A & B Discharge Planning Comments: CM met with patient to complete initial dc planning assessment. CM educated patient on the CM role and verbal consent given by patient to complete assessment. Patient lives at home alone. At discharge patient plans to return home and feels this is a safe discharge. I discussed home health, rehab and medical equipment. States she has home health with [facility] and would like it resumed. I called [facility] and spoke to Idania and they will resume care, clinical and dc med list faxed. Home today with home health. Stiff Neck Loader: Rosita Seay DCPIA - Discharge Planning Initial Assessment Updated by [email or web address]: Rosita Seay on 03/21/20 1:44 pm * Is the patient Alert and Oriented? Yes * How many steps to enter\exit or inside your home? 2/0 * PCP Dr. Harper * Pharmacy [facility] * Preadmission Environment Home Alone * ADLs Independent * Equipment Cane Walker Wheelchair * List name and contact numbers for known caregivers / representatives who currently or will assist patient after discharge: Concetta Galvez - DTR - [phone] * Verbal permission to speak to the caregivers and representatives has been obtained from the patient. Yes * Community resources currently utilized Home Health * Please name any agencies selected above. [facility] * Additional services required to return to the preadmission environment? No * Can the patient safely return to the preadmission environment? Yes * Has this patient been hospitalized within the prior 30 days at any hospital? No Coverage Notice Reviewer: [email or web address] Seay Notice Issued Date-Time: 03/21/2020 13:46 Notice Type: IM Discharge Notice Notice Delivered To: Patient Relationship to Patient: Self Acid Splicer Name: Delivery Method: HAND - Hand Delivered Elsy Days: Prior Verbal Notification: Recipient Understood Notice: Yes Recipient Signature: Yes Med Rec Note Co-signed by Attending: Coverage Notice Comment: Reviewer: [id number] Seay Notice Issued Date-Time: 03/21/2020 13:46 Notice Type: Patient Choice Letter Notice Delivered To: Patient Relationship to Patient: Self Acid Splicer Name: Delivery Method: HAND - Hand Delivered Elsy Days: Prior Verbal Notification: Recipient Understood Notice: Yes Recipient Signature: Yes Med Rec Note Co-signed by Attending: Coverage Notice Comment: [facility] Last DP export: 03/21/20 12:48 p Patient Name: JULISSA GALVEZ Page [phone] at 1446 All edits/amendments must be made on the electronic document DICTATION DATE: 03/22/20 1446 NON DESTRUCTIVE EVALUATION TECHNICIAN: [email or web address] 03/22/20 1446 RPT#: [id number] DC DATE:03/21/20 STATUS: DIS IN [facility] [address] [place] [address] END OF REPORT
== END 2020-03-21 13:34 | disposition home health service (06) | DRG 603 ==
LOC: D.ER 16:58 → D.M2 22:35
PROVIDERS: Family Medicine; ADMIT Family Medicine; ATTEND Family Medicine
DX: L03.116 Cellulitis of left lower limb (principal); I50.22 Chronic systolic (congestive) heart failure; Z68.41 Body mass index [BMI] 40.0-44.9, adult; L03.115 Cellulitis of right lower limb; I11.0 Hypertensive heart disease with heart failure; D64.9 Anemia, unspecified; K21.9 Gastro-esophageal reflux disease without esophagitis; J44.9 Chronic obstructive pulmonary disease, unspecified; E66.01 Morbid (severe) obesity due to excess calories; K27.9 Peptic ulcer, site unspecified, unspecified as acute or chronic, without hemorrhage or perforation; Z85.71 Personal history of Hodgkin lymphoma

== ENCOUNTER 2020-12-17 07:28 | Emergency (ER) | payer MEDICARE, MEDICAID ==
[~2020-12-17] VITALS: Ht 167.6 cm; Wt 109.1 kg
[~2020-12-17 07:28] MED LIST changes: +KEFLEX500 MG PO
[2020-12-17 07:32] VITALS: Ht 167.6 cm; Wt 109.1 kg
[2020-12-17 08:20] LABS: CALC OSMOLALITY 288 mosm/kg (275-300); CALCIUM 8.5 mg/dL (8.5-10.1); CARBON DIOXIDE 29.5 mmol/L (21.0-32.0); CHLORIDE - SERUM 105 mmol/L (98-107); CREATININE - SERUM 1.2 mg/dL (0.6-1.3); GLUCOSE 104 mg/dL (74-106); POTASSIUM - SERUM 4.2 mmol/L (3.5-5.1); SODIUM 142 mmol/L (136-145); UREA NITROGEN 30 mg/dL (7-18); eGFR NON AFRICAN AMERICAN 47 mL/min (90-120)
[2020-12-17 08:23] LABS: BASOPHILS 0.6 % (0-2); EOSINOPHILS 3.1 % (0-7); HEMATOCRIT 34.5 % (36.0-48.0); HEMOGLOBIN 11.3 g/dL (12-16); LYMPHOCYTES 16.9 % (15-50); MCH 29.9 pg (26.0-34.0); MCHC 32.8 g/dL (31.0-37.0); MCV 90.9 fL (80.0-100.0); MONOCYTES 9.9 % (2-11); NEUTROPHILS 69.5 % (40-80); RBC 3.79 10x6/uL (4.00-5.40); RDW 14.2 % (11.5-14.5); WBC 6.5 10x3/uL (4.8-10.8)
[2020-12-17 08:24] LABS: PLATELET COUNT 216 10x3/uL (130-400)
[2020-12-17 08:33] LABS: ALBUMIN 3.4 g/dL (3.4-5.0); ALKALINE PHOSPHATASE 118 U/L (30-120); ALT (SGPT) 24 U/L (10-68); BILIRUBIN - TOTAL 0.17 mg/dL (0.2-1.3); PRO BNP 58 pg/mL (0-125); PROTEIN - SERUM 6.6 g/dL (6.4-8.2); TROPONIN-I < 0.017 ng/mL (0.000-0.060)
[2020-12-17 09:00] LABS: BILIRUBIN NEGATIVE (NEGATIVE); KETONE NEGATIVE (NEGATIVE); NITRITE NEGATIVE (NEGATIVE); UROBILINOGEN NORMAL mg/dL (< 2)
[2020-12-17 09:03] VITALS: BP 136/59
== END 2020-12-17 10:15 | disposition home or self-care (01) ==
LOC: D.ER 07:28
PROVIDERS: Emergency Medicine
DX: E86.0 Dehydration (principal); R53.1 Weakness; I11.0 Hypertensive heart disease with heart failure; I50.9 Heart failure, unspecified; G62.9 Polyneuropathy, unspecified; J44.9 Chronic obstructive pulmonary disease, unspecified; Z99.81 Dependence on supplemental oxygen; K21.9 Gastro-esophageal reflux disease without esophagitis; R06.02 Shortness of breath

== ENCOUNTER → 2021-01-07 09:26 | Outpatient (CLI) | payer MEDICARE ==
[2020-12-17 07:32] VITALS: BMI 38.8
== END | disposition home or self-care (01) ==
LOC: D.MRI 09:26
PROVIDERS: ATTEND Nurse Practitioner Family
DX: M75.122 Complete rotator cuff tear or rupture of left shoulder, not specified as traumatic (principal)